=== PATIENT | female | born 1990 | race Caucasian/White ===

== ENCOUNTER 2018-10-31 14:00 | Outpatient (CLI) | payer MEDICAID, SELFPAY ==
[2018-10-31 14:20] VITALS: BMI 31.6
[2018-10-31] MEDS: Lactated Ringers 1,000 ML 125 ML IV (14:35)
--- NOTE | 2018-10-31 14:37 | OB.TRI.NOTE ---
History of Present Illness Date of Service: 10/31/18 Was patient seen by the physician?: Yes Reason For Visit: CEPHALIC VERSION Date of Service: 10/31/18 Final MORENO: 11/18/18 Final MORENO Source: US <20 weeks Gestational age: 37 Weeks and 3 Days Allergies No Known Allergies Allergy (Verified 02/10/16 14:54) Physical Exam General: Alert, Oriented x3 Abdomen: Soft, Non Tender, Gravid Presentation: Breech NST - FHR Rate Baby A Baseline: 140 Variability:: Moderate Accelerations:: 15 x 15 Decelerations:: None NST Reactive:: Yes FHR Category:: Category I Uterine Activity:: occasional Impression/Plan 28yo @ 37.3 wks, BREECH here for external cephalic version 1) counseled on risks of external cephalic version including but not limited to emergent cs due to intolerance or placental abruption. If fails will schedule for repeat c/s at 39 weeks 2) IV started, labs obtained 3) Ultrasound confirms Breech
--- NOTE | 2018-10-31 14:51 | PCM.OP.BLANK ---
Operative Report Date of Procedure: 10/31/18 Primary: Dr. Kitty Funk Technical Illustrator: Dr. Yolanda Peters Pre op dx: Breech presentation Post op dx: breech presentation procedure performed: Attempted external cephalic version- unsuccessful procedure note: Informed consent was obtained and NST obtained external cephalic version was attempted. Gel was placed on maternal abdomen. Maternal abdomen was soft nontender. Attempted backward roll first unsuccessful. buttocks difficult to disengage. Next a second attempted a forward roll was performed and again was unsuccessful. At this time patient declined further trial. Patient is scheduled for a repeat section on November 15, 2018. Patient will get RhoGam prior to leaving today. complications: NONE anesthesia: None
== END 2018-10-31 16:30 | disposition home or self-care (01) ==
LOC: WPOUT 14:12 → WP 14:13
PROVIDERS: Referring Provider Obstetrics & Gynecology; Visit Provider Obstetrics & Gynecology
DX: O32.1XX0 Maternal care for breech presentation, not applicable or unspecified (principal); Z3A.37 37 weeks gestation of pregnancy
CPT/HCPCS: 96360; 96361; 59025; 59050; 59412; 76815; 86900; 90384; 96372; 99218; J7120; G0378; J2790

== ENCOUNTER 2018-11-05 19:40 | Outpatient (CLI) | payer MEDICAID, SELFPAY ==
[2018-11-05 20:21] VITALS: BMI 32.3
[2018-11-05 20:45] LABS: ROM Internal Control Test YES-OK TO RESULT pt. (Internal QC); ROM Patient Test Negative (Negative)
[2018-11-05 20:55] VITALS: RESP 18
--- NOTE | 2018-11-06 08:05 | OB.TRI.NOTE ---
- Problem List (1) Vaginal discharge during Status: Acute History of Present Illness Date of Service: 11/05/18 Was patient seen by the physician?: No Reason For Visit: Possible LOF Date of Service: 11/05/18 Final MORENO: 11/18/18 Final MORENO Source: US <20 weeks Gestational age: 38 Weeks and 2 Days History of Present Illness: Patient presented with possible LOF. Stated underwear were wet. No gush or leaking fluid. No ctx, vb. +FM Allergies No Known Allergies Allergy (Verified 11/05/18 20:20) Laboratory Studies: Laboratory Tests 11/05/18 Range/Units 20:00 Vag Amniotic Fld Detect Negative (Negative) Physical Exam Vitals: Vital Signs Resp 18 11/05/18 20:55 NST - FHR Rate Baby A Baseline: 140 Variability:: Moderate Accelerations:: 15 x 15 Decelerations:: None NST Reactive:: Yes Uterine Activity:: irritable Impression/Plan Pt presented for vaginal discharge, possible LOF - Not ruptured - NST reactive and reassuring - D/c home
--- OUTSIDE RECORDS SUMMARY | 2018-12-23 00:17 | XMS RPT_ITS ---
:1990 Author Organization OHIP Care Team Providers Name Role Phone Minna Barron Admitting Unavailable Minna Barron Attending Unavailable Minna Barron Referring Unavailable Primay Care Physicia, No Primary Care Unavailable Cuca Peters Attending Unavailable Cuca Peters Referring Unavailable Primay Care Physicia, No Primary Care Unavailable Cuca Peters Attending Unavailable Cuca Peters Referring Unavailable Primay Care Physicia, No Primary Care Unavailable Minna Barron Admitting Unavailable Harini, Minna Attending Unavailable Harini, Minna Referring Unavailable Primay Care Physicia, No Primary Care Unavailable SNOW DIAMOND () Attending Unavailable AYAKA, KAREBER Referring Unavailable NEYTERESAT ANGEL, SONJA Attending Unavailable AYAKA, KARMON Referring Unavailable NEYHART ANGEL, SONJA Attending Unavailable ABEL HOUSE Attending Unavailable NEYHART ANGEL, OSNJA Referring Unavailable AYAKA, KAREBER Attending Unavailable NEYHART ANGEL, SONJA Referring Unavailable NEYHART ANGEL, SONJA Referring Unavailable LILO, HANNA (CNM) Attending Unavailable AYAKA, KARMON Referring Unavailable DONNY SCOTT (CNM) Attending Unavailable LILO, HANNA (CNM) Referring Unavailable TRACY CONTRERAS Attending Unavailable LILO, HANNA (CNM) Referring Unavailable LILO, HANNA (CNM) Attending Unavailable LILO, HANNA (CNM) Referring Unavailable CUCA PETERS Attending Unavailable LILO, HANNA (CNM) Referring Unavailable ALVARO DONNY (CNM) Attending Unavailable TRACY CONTRERAS Attending Unavailable HARINI, MINNA L Referring Unavailable NEYHART ANGEL, SONJA Attending Unavailable HARINI, MINNA L Referring Unavailable HARINI, MINNA L Attending Unavailable LILO, HANNA (CNM) Attending Unavailable HARINI, MINNA L Referring Unavailable HARINI, MINNA L Attending Unavailable ALVARO DONNY (CNM) Attending Unavailable HARINI, MINNA L Attending Unavailable AYAKA, KARMON Attending Unavailable ALVARO, DONNY (CNM) Referring Unavailable ALVARO DONNY (CNM) Referring Unavailable HARINI, MINNA L Attending Unavailable AYAKA, MARIA G Attending Unavailable Delia Cervantes MD Attending Unavailable PHYSICIAN, NONE Primary Care Unavailable PROBLEMS PROBLEMS DATE TYPE CONDITION / CODE ATTENDING STATUS SOURCE 11/17/2018 Unknown O82 - Encounter for Harini, Active [place] delivery [facility] without indication / Hospital O82(ICD-10) Repository 11/11/2018 Unknown N89.8 - Other Cuca Peters Active [place] specified [facility] noninflammatory Hospital disorders of vagina / Repository N89.8(ICD-10) 08/31/2018 Active 27 weeks gestation of NA Active [facility] Main Z3A.27(ICD-10) [place] Repository 05/02/2018 Active Encounter for NA Active [facility] supervision of other [facility] normal , [place] first trimester / Repository Z34.81(ICD-10) 05/02/2018 Active History of uterine NA Active [facility] scar from previous [facility] surgery / [place] Z98.891(ICD-10) Repository 05/02/2018 Active 11 weeks gestation of NA Active [facility] / [facility] Z3A.11(ICD-10) [place] Repository 03/16/2018 Active Supervision of NA Active [facility] with [facility] Main history of ectopic [place] , Repository unspecified trimester / O09.10(ICD-10) 03/14/2018 Active Unknown / NA Active [facility] UNK(Unknown) [facility] [place] Repository PROCEDURES PROCEDURES No Procedure Records FoundRESULTS RESULTS PROGRESS Observed: 11/29/2018 Status: COMPLETED Source: [place] 4:04 PM [facility] REPOSITORY HNO ID: [id number] Author: Donny Scott Service: (none) Author Type: Sales Representative Advertising Type: Progress Notes Filed: 11/29/2018 4:14 PM Note Text: SUBJECTIVE: 28 year old female presents for 2 week exam. Outcome: RCS. Date delivered: 11/15/2018. Delivering M.D.: Minna Barron M.D.. Delivered in what hospital? [facility] Lochia: [place], Normal depression/mood: None Breast/bottle: Breast feeding. If , do you have any drainage or redness at incision site? No Do you have a fever? No Stephania Barron Ma OBJECTIVE: Abdomen: soft, non-tender, no masses, no hepatosplenomegaly and no lymphadenopathy Incision: Healed PLAN: RTO for 6 week check I have reviewed and updated past medical and surgical history, medications and allergies. Donny Scott APRN.FATOU CNOV Observed: 11/29/2018 Status: COMPLETED Source: [place] 4:00 PM [facility] REPOSITORY Office Visit (WOOB) MARTA KING ([id number]) 1990 F Date Time Provider Department 11/29/18 4:00 PM DONNY SCOTT (FATOU) WOOB During your visit today, we recorded the following information about you: Blood pressure Weight 120/70 80.3 kg Donny Scott APRN.CNM 11/29/2018 4:14 PM Signed SUBJECTIVE: 28 year old female presents for 2 week exam. Outcome: RCS. Date delivered: 11/15/2018. Delivering M.D.: Minna Barron M.D.. Delivered in what hospital? [facility] Lochia: [place], Normal depression/mood: None Breast/bottle: Breast feeding. If , do you have any drainage or redness at incision site? No Do you have a fever? No Stephania Barron Ma OBJECTIVE: Abdomen: soft, non-tender, no masses, no hepatosplenomegaly and no lymphadenopathy Incision: Healed PLAN: RTO for 6 week check I have reviewed and updated past medical and surgical history, medications and allergies. Donny Scott APRN.CNM Referring Provider: SELF [200] Allergies As of Date: 11/29/2018 (No Known Allergies) Date Reviewed: 11/29/2018 Reviewed by: Stephania Barron Ma - Fully Assessed Primary Visit Diagnosis:Single delivery by section [O82] Prescriptions as of 11/29/2018 Sig: VIT 123-IRON 28 MG-F* Take 1 capsule by mouth once * Problem List As Of Date 11/29/2018 Noted Resolved Retained tampon [T19.2XXA] INVALID FOR*08/14/2017 More... BV (bacterial vaginosis) [N76.0, B96.89] INVALID FOR*08/14/2017 More... Genetic screening [Z13.79] INVALID FOR*10/27/2017 More... Ectopic [O00.90] INVALID FOR*10/27/2017 Rh negative state in antepartum period [O09.899*INVALID FOR* More... Post-dates [O48.0] INVALID FOR*10/27/2017 Short interval between pregnancies affecting pr*INVALID FOR* More... with history of ectopic [O0*INVALID FOR* More... History of macrosomia in infant in prior pregna*INVALID FOR* More... Previous delivery affecting ,*INVALID FOR* More... Quit smoking [Z87.891] INVALID FOR* More... Patient requested diagnostic testing [Z01.89] INVALID FOR* More... Cocaine use [F14.90] INVALID FOR* More... Breech presentation [O32.1XX0] INVALID FOR* More... Disposition: Return if symptoms worsen or fail to improve, for 6 week visit. Follow-up and Disposition History Recorded Encounter Status:Closed by DONNY SCOTT on 11/29/18 DISCHARGE SUMMARY Observed: 11/21/2018 Status: F Source: [place] 8:56 AM [facility] REPOSITORY [facility] Medical Records Department [address] [place] [address] [place] [address] Discharge Summary 11/17/18 1306 MR#: [id number] Acct: [id number] Name: MARTA KING Rep #: [id number] : 1990 28 From: Donny Scott CNM PCP: Care Physician, No Primary Status: DIS IN Y Location: [id number] Discharge Date and Diagnosis Date of Admission: 11/15/18 Date of Discharge: 11/17/18 - Primary Discharge Diagnosis Repeat Section Hospital Course and Treatment Operations: - - Section Procedures: None Summary of Care Provided: The patient is a 28 year old F for Repeat Section. Hospital course uncomplicated. - Physical Exam Vital Signs Temp Pulse Resp BP Pulse Ox 98.2 F 109 H 16 126/82 H 98 11/17/18 08:00 11/17/18 08:00 11/17/18 08:00 11/17/18 08:00 11/17/18 08:00 Oxygen Delivery Method Room Air Weight: 201 lb Body Mass Index (BMI) 32.4 Intake and Output for Last 24 Hours Intake Total 2342 / 2342 1367 / 1367 Output Total 1400 / 1400 5400 / 5400 Balance 942 / 942 -4033 / -4033 Discharge Diet: No Restrictions Discharge Activity: May not drive while taking narcotic pain medications., May Shower May resume sexual activity in: 4-6 weeks Weight Bearing Status: Full weight bearing Additional Activity Instructions:: Nothing in the vagina for 4-6 weeks. You may return to work/school in 6 weeks. Call your doctor if your incision/area has: Continuous Slow Oozing, Sudden Increased Bleeding, Increased Pain/ Swelling, Increased Redness, Foul Smelling Discharge Call your doctor if you observe: Fever of 101 or Higher, Coldness, Increased Pain, Inability to urinate, Inability to have a bowel movement, Using more than one pad per hour, Shortness of breath, Chest pain, Increased palpitations (irregular heartbeat), Calf discomfort, Uncontrolled pain Suture Line Care: Avoid Pulling/Pushing, Avoid Pinching/Bending Remove Dressing in (days):: 5 Cleanse incision/area with: Keep Dressing Clean AND Dry Home Medications: Medications to take at Discharge Vits [Prenatabs FA ] 1 tablet PO DAILY 02/10/16 Docusate Sodium [Colace] 100 mg PO BID capsule 11/16/18 Naproxen [Naprosyn] 250 - 500 mg PO Q8H PRN PRN #30 tablet 11/16/18 Oxycodone HCl/Acetaminophen [Percocet 5/325] 1 - 2 tab PO Q4H PRN PRN 7 Days #20 tab 11/16/18 Following Prescrptions Were Given to Patient: Oxycodone HCl/Acetaminophen [Percocet 5/325] 1 - 2 tab PO Q4H PRN PRN 7 Days #20 tab PRN Reason: Pain Naproxen [Naprosyn] 250 - 500 mg PO Q8H PRN PRN #30 tablet PRN Reason: Mild Pain (-02/02) Primary Care Physician: Care Physician,No Primary [Primary Care Provider] - Please Follow Up With: Minna Barron MD Medical Necessity - Tobacco Use Smoking Status: Former smoker Meaningful Use Info Meaningful Use Diagnoses (Choose all that apply): None applicable 11/17/18 1309 <Electronically signed by Donny Scott CNM> Date Donny Scott CNM 11/21/18 0856<Electronically signed by Minna Barron MD> Cosigner Signature (if applicable): Date Minna Barron MD CC: FATOU Scott; No Primary Care Physician; Minna Barron MD Signed PROGRESS Observed: 11/20/2018 Status: COMPLETED Source: [place] 11:53 AM [facility] REPOSITORY HNO ID: [id number] Author: Francine Matos LPN Service: (none) Author Type: (none) Type: Progress Notes Filed: 11/20/2018 11:55 AM Note Text: Pt delivered via RC/S at [facility] on 11/15/[address] Barron and FADI. See OB Outcome note. Attempted to contact pt and follow up post , number listed is no longer a working number. Francine Matos LPN DISCHARGE INSTRUCTION Observed: 11/16/2018 Status: F Source: [place] 2:48 PM [facility] REPOSITORY [facility] Medical Records Department [address] [place] [address] Instructions for Home/Discharge Instructions 11/16/18 1446 MR#: [id number] Acct: [id number] Name: MARTA KING Rep #: [id number] : 1990 28 From: Donny Scott CNM PCP: Care Physician, No Primary Status: ADM IN Discharge Diet: No Restrictions Discharge Activity: May not drive while taking narcotic pain medications., May Shower May resume sexual activity in: 4-6 weeks Weight Bearing Status: Full weight bearing Lifting Restrictions: 20 pounds Additional Activity Instructions:: Nothing in the vagina for 4-6 weeks. You may return to work/school in 6 weeks. Call your doctor if your incision/area has: Continuous Slow Oozing, Sudden Increased Bleeding, Increased Pain/ Swelling, Increased Redness, Foul Smelling Discharge Call your doctor if you observe: Fever of 101 or Higher, Coldness, Increased Pain, Inability to urinate, Inability to have a bowel movement, Using more than one pad per hour, Shortness of breath, Chest pain, Increased palpitations (irregular heartbeat), Calf discomfort, Uncontrolled pain Suture Line Care: Avoid Pulling/Pushing, Avoid Pinching/Bending Remove Dressing in (days):: 5 Cleanse incision/area with: Keep Dressing Clean AND Dry Additional Instructions: If you experience any of the following, contact your healthcare provider. * Bleeding that soaks a pad every hour for 2 hours * Fever 100.4 or higher * Unrelieved incision or abdominal pain * Swelling, redness, discharge or bleeding from your incision or episiotomy site * Your incision begins to separate * Problems urinating (including inability to urinate or burning while urinating). * Visual changes * Severe headache * Flu-like symptoms * Pain or redness in one of both of your breasts * Pain, warmth, tenderness or swelling in your legs, especially the calf area * Frequent nausea and vomiting * Symptoms of depression or anxiety If you experience any of the following, call 911 or go to the nearest Emergency Room. * Chest pain * Problems breathing * Seizure activity * Partial or complete paralysis of a body part, slurred speech, weakness or drooping of the face, or a sudden inability to walk or hold your balance Allergies/Adverse Reactions: Allergies No Known Allergies Allergy (Verified 11/15/18 11:28) Medications to take at Discharge Vits [Prenatabs FA ] 1 tablet PO DAILY 02/10/16 Docusate Sodium [Colace] 100 mg PO BID capsule 11/16/18 Naproxen [Naprosyn] 250 - 500 mg PO Q8H PRN PRN #30 tablet 11/16/18 Oxycodone HCl/Acetaminophen [Percocet 5/325] 1 - 2 tab PO Q4H PRN PRN 7 Days #20 tab 11/16/18 The following prescriptions were given: Oxycodone HCl/Acetaminophen [Percocet 5/325] 1 - 2 tab PO Q4H PRN PRN 7 Days #20 tab PRN Reason: Pain Naproxen [Naprosyn] 250 - 500 mg PO Q8H PRN PRN #30 tablet PRN Reason: Mild Pain () Follow-Up: Call to make an appointment with your doctor for an incision check in 1-2 weeks. You will also need a 6 week post- follow up appointment. Test results from this visit will be discussed in further detail at your follow-up appointment, if applicable. Please Follow Up With: Minna Barron MD Primary Care Physician: Care Physician,No Primary [Primary Care Provider] - 11/16/18 1448 <Electronically signed by Donny Scott CNM> Date Donny Scott CNM CC: No Primary Care Physician Signed CBC-COMPLETE BLOOD CNT Collected: 11/16/2018 Status: F Source: [place] NO DIFF 6:00 AM [facility] REPOSITORY Order Comment: Comments: Day #1 Reason for Laboratory Test TYPE CODE TESTS RESULT OUT OF RANGE REFERENCE UNITS LAB L100.1000 4.4-11.0 K/mm3 Normal WBC 10.7 LAB L100.1200 4.2-5.4 M/mm3 Low RBC 3.18 LAB L100.1300 12.0-15.0 g/dl Low HGB 9.2 LAB L100.1400 37-47 % Low HCT 28.4 LAB L100.1500 81-99 fL Normal MCV 89.3 LAB L100.1600 27.0-32.0 pg Normal MCH 28.9 LAB L100.1700 32-36 g/gl Normal MCHC 32.4 LAB L100.1810 11.6-14.6 % Normal RDW CV 12.9 LAB L100.1820 35.1-43.9 fl Normal RDW SD 41.8 LAB L100.1900 150-450 K/mm3 Normal PLT 222 LAB L100.2000 6.2-12.0 fl Normal MPV 8.4 Performed By: #### L100.0500 #### [facility] [place], [address] RH NEGATIVE MOM Collected: 11/15/2018 Status: F Source: [place] WORKUP 6:40 PM [facility] REPOSITORY Order Comment: Baby's Full Name LAVON KING Baby's Bracelet # [id number] Baby's MR # [id number] TYPE CODE TESTS RESULT OUT OF RANGE REFERENCE UNITS LAB B101.0425 O Normal MOM'S ABO NEGATIVE RH LAB B101.0450 Normal MOM'S ABS POSITIVE LAB B101.0500 NEGATIVE Normal NEGATIVE SCREEN LAB B101.0950 O Normal BABY'S POSITIVE ABO RH LAB B101.1000 NEGATIVE Normal BABY'S POSITIVE MARCY Performed By: #### B101.0300 #### [facility] [address] [place], [address] RHOGAM Collected: 11/15/2018 Status: F Source: [place] 6:40 PM [facility] REPOSITORY TYPE CODE TESTS RESULT OUT OF REFERENCE UNITS RANGE LAB U100.2500 [id number] TRANSFUSED PRODUCT: Rho(D) Immune Globulin RhoGam COUNT: 1 Performed By: #### U100.2500 #### [facility] - refer to report for specific site OPERATIVE REPORT Observed: 11/15/2018 Status: F Source: [place] 1:07 PM [facility] REPOSITORY [facility] Medical Records Department [address] [place] [address] Operative Report 11/15/18 1302 MR#: [id number] Acct: [id number] Name: MARAT KING Rep #: [id number] : 1990 28 From: Minna Barron MD PCP: Care Physician, No Primary Status: ADM IN Location: [id number] Delivery Classification: Scheduled Final MORENO: 11/18/18 Final MORENO Source: US <20 weeks Gestational age: 39 Weeks and 4 Days Indications for : Repeat Elective Description of Procedure: The patient was taken to the operating room. She was prepped and draped in the dorsal supine position with a leftward tilt. A Pfannenstiel skin incision was made approximately 2 cm above the symphysis pubis and carried through to underlying layer fascia with the scalpel. The fascia was incised incised in the midline and extended laterally with the Chilel scissors. The fascia was dissected off the rectus muscles with blunt and sharp dissection. The rectus muscles were in the midline and the peritoneum was entered bluntly. The peritoneal incision was stretched and the bladder blade was placed. The uterine incision was made in a low transverse fashion with the scalpel and extended superiorly and inferiorly with blunt dissection. The amniotic membranes were ruptured and moderate meconium-stained fluid was noted. The nurses were notified. The infant's head was brought to the incision in the flexed position, and initially wouldn't engage. The incision was stretched slightly and no areas that were preventing delivery were noted, the angle of the vertex was shifted slightly and then the infant and delivered without difficulty. The remainder of the was delivered with gentle traction and fundal pressure in the standard fashion. The mouth and nares were bulb suctioned. The cord was clamped and cut as the was stimulated. Cord clamping was delayed approximately 30 seconds. The was handed off to the waiting nursing staff. The placenta was delivered with fundal massage and gentle traction in the standard fashion. The uterus was exteriorized and cleared of all clots and debris. The cervix was dilated with a ring forcep. The uterine incision was closed with #1 Vicryl in a running locked fashion. A second layer of the same suture was used in an imbricating fashion. The incision was examined and was found to be hemostatic. The uterus was placed back into the peritoneal cavity and hemostasis was again confirmed. The rectus muscles were examined and any bleeding was Bovie cauterized. The parietal peritoneum was closed with 3-0 Vicryl suture and the rectus muscles were reapproximated with an 0 Vicryl running suture. The surgical teams outer gloves were then changed. The rectus fascia was examined and any bleeding was Bovie cauterized and the rectus fascia was closed with 1 Vicryl suture in a running standard fashion. The subcutaneous tissue was examining and any bleeding was Bovie cauterized. The subcutaneous tissue was reapproximated with 3-0 Vicryl suture. The skin was closed in a subcuticular fashion by the DIRECTOR DATA ANALYTICS with me present in the labor and delivery suite. I performed the remainder of the procedure with assistance. All sponge, lap, and needle counts were correct. The patient was taken to her room for recovery in a stable condition. Amniotic Membrane Rupture Type: Artificial Amniotic Fluid Description: Moderate meconium Placenta Disposition: [facility] Specimen(s) sent to pathology: None Drain: Mason to straight drain Fluids Replaced: 1200cc Cord Entanglement: None Cord Vessel Description: 3 Vessels Esitmated Blood Loss (ml): 800 Infant Gender: Female (1 minute): 8 (5 minute): 9 Delayed cord clamping: Yes Complications: None - Admit VTE Documentation VTE Present on Admission: No VTE Mechan Device Prophylaxis: SCD's VTE Pharm Prophylaxis ordered?: No Reason prophylaxis not ordered:: Procedure Not Indicated 11/15/18 1307 <Electronically signed by Minna Barron MD> Date Minna Barron MD CC: No Primary Care Physician; Minna Barron MD Signed CBC W/DIFF, AUTOMATED Collected: 11/15/2018 Status: F Source: [place] 10:40 AM [facility] REPOSITORY TYPE CODE TESTS RESULT OUT OF RANGE REFERENCE UNITS LAB L100.1000 4.4-11.0 K/mm3 Normal WBC 9.6 LAB L100.1200 4.2-5.4 M/mm3 Low RBC 3.57 LAB L100.1300 12.0-15.0 g/dl Low HGB 10.4 LAB L100.1400 37-47 % Low HCT 31.6 LAB L100.1500 81-99 fL Normal MCV 88.5 LAB L100.1600 27.0-32.0 pg Normal MCH 29.1 LAB L100.1700 32-36 g/gl Normal MCHC 32.9 LAB L100.1810 11.6-14.6 % Normal RDW CV 12.7 LAB L100.1820 35.1-43.9 fl Normal RDW SD 40.7 LAB L100.1900 150-450 K/mm3 Normal PLT 282 LAB L100.2000 6.2-12.0 fl Normal MPV 8.7 LAB L100.2100 47-70 % High NEUT% 71.1 LAB L100.2200 19-41 % Normal LY% 20.7 LAB L100.2300 0-10 % Normal MONO% 7.3 LAB L100.2400 0-5 % Normal EO% 0.5 LAB L100.2500 0-1 % Normal BASO% 0.2 LAB L100.2550 0.0-0.9 % Normal IM GRAN % 0.200 Result Comment: IG% - Immature Granulocytes (promyelocytes, myelocytes and metamyelocytes) > 1% indicates that a LEFT SHIFT is Present. LAB L100.2620 2.0-7.7 X10 3/uL Normal Absolute Neut 6.8 LAB L100.2720 0.83-4.51 X10 3/ul Normal Absolute Lymph 1.99 Performed By: #### L100.0100 #### [facility] [address] [place], [place], [id number] TYPE AND SCREEN Collected: 11/15/2018 Status: F Source: [place] 10:40 AM [facility] REPOSITORY Order Comment: CMV NEG?* N Give When? Type AND Hold Irradiated? N Leukodepleted? Y Reason for Type AND Screen/Red Cells: SURGERY Surgery Date: 11/15/18 Time: 1200 Type of Surgery: TYPE CODE TESTS RESULT OUT OF RANGE REFERENCE UNITS LAB B10.0800 O Normal BLOOD TYPE GEL NEGATIVE LAB B100.4000 High Antibody POSITIVE Screen Performed By: #### B101.7450, B101.1999, B102.1100 #### [facility] [address] [place], [place], [id number] ANTIBODY PANEL ID Collected: 11/15/2018 Status: F Source: [place] 10:40 AM [facility] REPOSITORY Order Comment: CMV NEG?* N Give When? Type AND Hold Irradiated? N Leukodepleted? Y Reason for Type AND Screen/Red Cells: SURGERY Surgery Date: 11/15/18 Time: 1200 Type of Surgery: TYPE CODE TESTS RESULT OUT OF REFERENCE UNITS RANGE LAB B101.2000 ANTIBODY PANEL Result Comment: ANTI-C ANTI-D CANNOT RULE OUT ANTI-E ANTI-K WILL USE C,E,K NEGATIVE UNITS RESULTS CALLED TO JEAN PALU 11/15/18 Chelyl2 Mario Riley. REPORT READ BACK BY JEAN PAUL. Performed By: #### B101.7450, B101.1999, B102.1100 #### [facility] [address] [place], [place], [address] ANTIGEN C GAMMACLONE Collected: 11/15/2018 Status: F Source: [place] 10:40 AM [facility] REPOSITORY Order Comment: CMV NEG?* N Give When? Type AND Hold Irradiated? N Leukodepleted? Y Reason for Type AND Screen/Red Cells: SURGERY Surgery Date: 11/15/18 Time: 1200 Type of Surgery: TYPE CODE TESTS RESULT OUT OF REFERENCE UNITS RANGE LAB B102.5450 C ANTIGEN ID ANTIGEN: NEGATIVE Performed By: #### B101.7450, B101.2000, B102.1100 #### [facility] [address] [place], [address] ANTIGEN E GAMMACLONE Collected: 11/15/2018 Status: F Source: [place] 10:40 AM [facility] REPOSITORY TYPE CODE TESTS RESULT OUT OF REFERENCE UNITS RANGE LAB B102.5450 E ANTIGEN ID ANTIGEN: NEGATIVE Performed By: #### B102.1200 #### [facility] [address] [place], [address] ANTIGEN K (STEVEN) Collected: 11/15/2018 Status: F Source: BESSIE SERIES 2 10:40 AM [facility] REPOSITORY TYPE CODE TESTS RESULT OUT OF REFERENCE UNITS RANGE LAB B102.5450 K ANTIGEN ID ANTIGEN: NEGATIVE Performed By: #### B102.1500 #### [facility] [address] [place], [address] HISTORY PHYSICAL Observed: 11/12/2018 Status: COMPLETED Source: [place] 8:39 AM [facility] REPOSITORY HNO ID: [id number] Author: Minna Barron Service: (none) Author Type: Physician Type: HANDP Filed: 11/12/2018 9:04 AM Note Text: Pre-Op History and Physical HPI: The patient is a 28 year old female presenting for pre-operative visit. She is scheduled for , for previous c/s and LGA on 11/15/18. Procedure discussed along with risks, benefits and complications. Other alternatives discussed for management. Consent form signed? Yes. PAST MEDICAL HISTORY Diagnosis Date - Chlamydia 2012 - Ectopic - Miscarriage PAST SURGICAL HISTORY Procedure Laterality Date - EXTRACTION ERUPTED TOOTH/EXR 2007 - REMOVAL OF FALLOPIAN TUBE 12/2015 Right tube Current Outpatient Prescriptions: [id number] (ONE-A-DAY WOMEN'S 1) 28 mg iron- 800 mcg-235 mg cap Take 1 capsule by mouth once daily. Disp: 1 Bottle Rfl: 11 No current facility-administered medications for this visit. ALLERGIES: Patient has no known allergies. 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[employer]* Social History Main Topics Smoking status: Former Smoker Packs/day: 0.00 Years: 3.00 Types: Cigarettes Quit date: 02/21/2017 Smokeless tobacco: Never Used Alcohol use: No Comment: occ Drug use: No Sexual activity: Yes Partners with: Male control/protection: None Other Topics Concern Service No Blood Transfusions No Caffeine Concern Yes Occupational Exposure Yes Hobby Hazards No Sleep Concern No Stress Concern No Weight Concern No Special Diet No Back Care No Exercise Yes Comment:7x daily Bike Helmet No Seat Belt Yes Self-Exams Yes Social History Narrative Merged History Encounter FAMILY HISTORY: FAMILY HISTORY Problem Relation Age of Onset - Cancer Maternal Grandmother - Cervical Cancer Maternal Grandmother - Psychiatry Father - Diabetes Brother - Cancer Other maternal fam hx of lung,colon, vulva - Hypertension Other maternal fam hx GENERAL: denies fevers or chills ENDOCRINOLOGY: has not been on steroids Cardiology : denies palpitations or chest pain Respiratory: denies SOB or cough Hematology: denies history of prolonged bleeding or easy bruising or VTE Allergy: Denies history of personal or family history of allergy to anesthesia PHYSICAL EXAMINATION: VITALS: Weight 195 lb (88.5 kg), last menstrual period 02/03/2018, currently . GENERAL: The patient is well nourished, well hydrated in no acute distress. , The patient is oriented to time, place, and person. NECK: Supple. No lynphadenopathy, normal thyroid, no thyromegaly. LUNGS: Clear to auscultation bilaterally. no wheezes, rhonchi or rales HEART: Regular rate and rhythm, Normal heart sounds and No murmurs or gallops abd- soft nontender, gravid IMPRESSION: 39 4/7 weeks on 11/15 w/ LGA fetus, previous c/s PLAN: The risks/benefits/alternatives and personal involved for the planned c/s were reviewed with the patient. Her questions were answered to her satisfaction and she desires to proceed. Consent was signed. I reviewed with her postop instructions and expectations. I have reviewed and updated past medical and surgical history, medications and allergies Minna Barron M.D. PROGRESS Observed: 11/11/2018 Status: COMPLETED Source: [place] 9:04 AM [facility] REPOSITORY O ID: [id number] Author: Tracy Contreras Service: (none) Author Type: Physician Type: Progress Notes Filed: 11/11/2018 9:06 AM Note Text: A madrid intrauterine The size is LGA at > 97 th% Estimated Date of Delivery: 11/18/18 EGA = 38w4d The anatomy appears normal in the areas visualized. The amniotic fluid volume is normal. There is no evidence of effusions and/ or hydrops. The placenta is fundal. RECOMMENDATIONS: - Self-assessment of kick counts - Follow up ultrasound as clinically indicated (ROM) RUPTURE OF Collected: 11/05/2018 Status: F Source: [facility] 8:00 PM [facility] REPOSITORY TYPE CODE TESTS RESULT OUT OF RANGE REFERENCE UNITS LAB L205.1310 Negative Normal ROM Negative Result Comment: Amniotic fluid not present indicates No Rupture of Membranes at time of specimen collection. Performed By: #### L205.1000 #### [facility] [address] [place], [address] RHOGAM Collected: 10/31/2018 Status: F Source: [place] 3:25 PM [facility] REPOSITORY TYPE CODE TESTS RESULT OUT OF REFERENCE UNITS RANGE LAB U100.2500 [id number] TRANSFUSED PRODUCT: Rho(D) Immune Globulin RhoGam COUNT: 1 Performed By: #### U100.2500 #### Non-[facility] - refer to report for specific site OPERATIVE REPORT Observed: 10/31/2018 Status: F Source: [place] 2:55 PM [facility] REPOSITORY [facility] Medical Records Department [address] [place] [address] Operative Report 10/31/18 1451 MR#: [id number] Acct: [id number] Name: FERNANDOMARTA C Rep #: [id number] : 1990 28 From: Sonja Angel MD PCP: Care Physician, No Primary Status: REG CLI Y Location: SW086-3 Operative Report Date of Procedure: 10/31/18 Primary: Dr. Sonja Angel Nuclear Engineer: Dr. Cuca Peters Pre op dx: Breech presentation Post op dx: breech presentation procedure performed: Attempted external cephalic version- unsuccessful procedure note: Informed consent was obtained and NST obtained external cephalic version was attempted. Gel was placed on maternal abdomen. Maternal abdomen was soft nontender. Attempted backward roll first unsuccessful. buttocks difficult to disengage. Next a second attempted a forward roll was performed and again was unsuccessful. At this time patient declined further trial. Patient is scheduled for a repeat section on November 15, 2018. Patient will get RhoGam prior to leaving today. complications: NONE anesthesia: None 10/31/18 1455 <Electronically signed by Sonja Angel MD> Date Sonja Sanders MD CC: No Primary Care Physician; Sonja Sanders MD; Cuca Peters DO Signed ABO RH BLOOD TYPE, Collected: 10/31/2018 Status: F Source: [place] [facility] 2:35 PM [facility] REPOSITORY TYPE CODE TESTS RESULT OUT OF RANGE REFERENCE UNITS LAB B10.0800 O Normal BLOOD NEGATIVE TYPE GEL Performed By: #### B10.0010 #### [facility] [address] [place], [place], [address] PROGRESS Observed: 10/25/2018 Status: COMPLETED Source: [place] 4:53 PM [facility] REPOSITORY HNO ID: [id number] Author: Hanna Santana Service: (none) Author Type: Sales Representative Advertising Type: Progress Notes Filed: 10/25/2018 4:55 PM Note Text: CM - S: Marta King presents for a routine OB visit at 36w4d. She denies LOF, VB, DFM or cramping/contractions. Patient desires membrane sweep with SVE if possible - patient interested in TOLAC. O: See flow sheet Gen: A+O x 3, NAD Abdomen: NT x 4 quadrants, EFW = 7#, Breech by Bebo's, RSA Extremities: Trace pedal edema SVE = 0.5/50/-3, no sweep done A/P: 36w4d IUP. Previous C/S and Breech Presentation. RTO 1 Weeks for follow up. Call with LOF, VB, DFM or cramping/contractions. 1. 36 weeks gestation of -GBS screening done -Patient continues to decline Flu vaccine and Tdap vaccine - URINE OB DIP B/O - STREPTOCOCCUS B PCR 2. Encounter for supervision of other normal in third trimester -[facility] teaching and Labor precautions reviewed - STREPTOCOCCUS B PCR 3. Breech Presentation - Leon Breech -U/S confirmation of Leon Breech presentation - consultation with on-call physician Dr. Harini POLLACK. Plan for RTC in 4-5 days with MD provider to discuss and schedule ECV if baby is still breech. R/B/A of ECV discussed with patient today. -Natural methods to vert breech baby discussed - handouts given. Hanna Satnana APRN.CNM GROUP B STREP PCR Collected: 10/25/2018 Status: F Source: [place] 4:29 PM [facility] REPOSITORY TYPE CODE TESTS RESULT OUT OF REFERENCE UNITS RANGE LAB GBPCRT Negative for GROUP Group B B STREP PCR Streptococcus by PCR. Performed By: #### GBPCR #### [facility] [address] [place], [place] [address] 100G, 3HR GEST. Collected: 08/31/2018 Status: F Source: [place] OGTT 8:46 AM [facility] REPOSITORY TYPE CODE TESTS RESULT OUT OF REFERENCE UNITS RANGE LAB GTG0 74-94 mg/dL Glucose 76 GST,Fasting Result Comment: [place] [employer] of Obstetricians and Gynecologists ([place]oustan) guidelines state gestational diabetes mellitus is present when 2 or more of the plasma glucose concentrations meet or exceed the following levels: fastin mg/dl, 1 hr: 180 mg/dl, 2 hr: 155 mg/dl, and 3 hr: 140 mg/dl. LAB GTG1 74-179 mg/dL Glucose GST, 1 161 Hr Result Comment: [place] [employer] of Obstetricians and Gynecologists (Ma/[place]oustan) guidelines state gestational diabetes mellitus is present when 2 or more of the plasma glucose concentrations meet or exceed the following levels: fastin mg/dl, 1 hr: 180 mg/dl, 2 hr: 155 mg/dl, and 3 hr: 140 mg/dl. LAB GTG2 74-154 mg/dL Glucose GST, 2 124 Hr Result Comment: [place] [employer] of Obstetricians and Gynecologists (Ma/[place]oustan) guidelines state gestational diabetes mellitus is present when 2 or more of the plasma glucose concentrations meet or exceed the following levels: fastin mg/dl, 1 hr: 180 mg/dl, 2 hr: 155 mg/dl, and 3 hr: 140 mg/dl. LAB GTG3 74-139 mg/dL Glucose GST, 3 130 Hr Result Comment: [place] [employer] of Obstetricians and Gynecologists (Ma/Coustan) guidelines state gestational diabetes mellitus is present when 2 or more of the plasma glucose concentrations meet or exceed the following levels: fastin mg/dl, 1 hr: 180 mg/dl, 2 hr: 155 mg/dl, and 3 hr: 140 mg/dl. Performed By: #### GTGST3 #### [facility] [address] [place], [place] [address] CBC AND DIFFERENTIAL Collected: 08/23/2018 Status: F Source: [place] 3:10 PM [facility] REPOSITORY TYPE CODE TESTS RESULT OUT OF REFERENCE UNITS RANGE LAB WBC 3.70-11.00 k/uL WBC High 13.02 LAB RBC 3.90-5.20 m/uL Low RBC 3.57 LAB HGB 11.5-15.5 g/dL Low Hemoglobin 11.4 LAB HCT 36.0-46.0 % Low Hematocrit 33.9 LAB MCV 80.0-100.0 fL MCV 95.0 LAB MCH 26.0-34.0 pG MCH 31.9 LAB MCHC 30.5-36.0 g/dL MCHC 33.6 LAB RDWCV 11.5-15.0 % RDW-CV 12.7 LAB PLTCT 150-400 k/uL Platelet Count 324 LAB MPV 9.0-12.7 fL MPV 9.1 LAB ANEUT % Neut% 77.1 LAB AANEUT 1.45-7.50 k/uL Abs Neut High 10.03 LAB ALYMP % Lymph% 17.1 LAB AALYMP 1.00-4.00 k/uL Abs Lymph 2.23 LAB AMONO % [place]% 5.2 LAB AAMONO <0.87 k/uL Abs [place] 0.68 LAB AEOS % Eosin% 0.4 LAB AAEOS <0.46 k/uL Abs Eosin 0.05 LAB ABASO % Baso% 0.2 LAB AABASO <0.11 k/uL Abs Baso 0.03 LAB AUNRBC 0 /100 WBC NRBCs 0.0 LAB ABNRBC <0.01 k/uL Absolute nRBC <0.01 LAB DTYP DTYPE Auto Diff Performed By: #### CBCDIF #### [facility] [address] [address] 50G, 1HR GEST. Collected: 08/23/2018 Status: F Source: [place] GSCRN 3:10 PM [facility] REPOSITORY TYPE CODE TESTS RESULT OUT OF REFERENCE UNITS RANGE LAB GLUP 74-134 mg/dL High Glucose 140 Screen, Preg Result Comment: [place] [employer] of Obstetricians and Gynecologists ([place]ume) guidelines state a gestational diabetes mellitus positive screen is made, in women not previously diagnosed with overt diabetes, when the 1 hr plasma glucose level is equal to or above 140 mg/dL. The [facility] [employer] [facility] [place] recommends a 135 mg/dL cutoff. Performed By: #### GLTGST #### [place] [address] ANTIBODY SCREEN Collected: 08/23/2018 Status: F Source: [place] 3:10 PM [facility] REPOSITORY TYPE CODE TESTS RESULT OUT OF REFERENCE UNITS RANGE LAB % Antibody NEG Screen Performed By: #### ASCR #### [place] [address] PROGRESS Observed: 07/24/2018 Status: COMPLETED Source: [place] 12:46 PM [facility] REPOSITORY HNO ID: [id number] Author: Hanna Santana Service: (none) Author Type: Sales Representative Advertising Type: Progress Notes Filed: 07/24/2018 12:47 PM Note Text: CM - S: Marta Jcarlos King presents for a routine OB visit at 23w2d. She denies LOF, VB, DFM or cramping/contractions. O: See flow sheet Gen: A+O x 3, NAD Abd: NT x 4 quadrants, S=D Extremities: No edema A/P: 23w2d IUP. Previous C/S, Short Interconceptional Period. RTO 4-5 Weeks for follow up. Call with LOF, VB, DFM or cramping/contractions. 1. Encounter for supervision of other normal in second trimester -C teaching and PTL precautions reviewed -Patient still desires TOLAC, slight increase risk for uterine rupture for short interconceptional period discussed. Patient reports an understanding of possible risk. Continues to desire TOLAC if baby is not deemed macrosomic at term - URINE OB DIP B/O 2. 23 weeks gestation of -RTC in 4-5 weeks for MAMI+Rhogam+ 1 hour GCT - URINE OB DIP B/O Hanna Santana APRN.CNM PROGRESS Observed: 06/26/2018 Status: COMPLETED Source: [place] 3:55 PM [facility] REPOSITORY HNO ID: [id number] Author: Tracy Contreras Service: (none) Author Type: Physician Type: Progress Notes Filed: 06/26/2018 3:57 PM Note Text: A madrid? fetus in utero with symmetric measurements Adequate growth (AGA). Estimated Date of Delivery: 11/18/18 EGA = 19w2d The anatomy appears normal. There are no evident malformations and /or effusions. No genetic markers are noted. The amniotic fluid volume is within normal limits. The sensitivity of ultrasound in the detection of malformations overall is approximately 35%. RECOMMENDATIONS: - Follow up ultrasound as clinically indicated TOXICOLOGY SCREEN,UR Collected: 06/26/2018 Status: F Source: [place] 3:11 PM [facility] REPOSITORY TYPE CODE TESTS RESULT OUT OF REFERENCE UNITS RANGE LAB UPCP2 Negative Negative Phencyclidin e, Urine Result Comment: Cutoff threshold at 25 ng/mL. LAB UBENZ2 Negative Benzodiazepines, Ur Negative Result Comment: Cutoff threshold at 200 ng/mL. LAB UCOC2 Negative Cocaine, Negative Urine Result Comment: Cutoff threshold at 300 ng/mL. LAB UAMPH2 Negative Amphetamines, Urine Negative Result Comment: Cutoff threshold at 1000 ng/mL. LAB UTHC2 Negative Cannabinoids, Urine Negative Result Comment: Cutoff threshold at 50 ng/mL. LAB UOPI2 Negative Opiates, Negative Urine Result Comment: Cutoff threshold at 300 ng/mL. LAB UBARB2 Negative Barbiturates, Urine Negative Result Comment: Cutoff threshold at 200 ng/mL. LAB UETOH <11 mg/dL <11 Ethanol, Urine LAB UOXYC Negative Oxycodone, Negative Urine Result Comment: Cutoff threshold at 100 ng/mL. Comment: Immunoassay screen only. Cross reactivity with other substances can occur with immunoassay screening. Detection of any drug(s) in this urine toxicology panel is presumptive only. These tests are for med ical purposes only and should not be used for compliance monitoring, legal, or forensic use. Samples should be within normal physiological conditions (e.g. pH). This assay does not include adulteration/specimen validity testing. In clinical settings, confirmatory testing is at the practitioner's discretion [1]. If clinically indicated, confirmation by high specificity, quantitative methodology, which includes adulteration/spec imen validity testing, may be requested on the same specimen through Client Services ([phone]) if contacted within 48 hours of initial testing. [1]Substance Abuse and Mental Health Services Administration (2012). Clinical Drug Testing in Primary Care Technical Assistance Publication Series 32. Department of Health and Human Services, [place], p.10. These tests were developed and their performance characteristics determined by [facility]'s [facility] [place] ( [facility]). They have not been cleared or a pproved by the FDA. [facility] is regulated under CLIA as qualified to perform high complexity testing. These tests are used for clinical purposes. They should not be regarded as investigational or for research. Performed By: #### UTOX2 #### [facility] [address] [place], [place] [address] UA Collected: 06/20/2018 Status: F Source: [facility] 4:18 PM [facility] REPOSITORY TYPE CODE TESTS RESULT OUT OF RANGE REFERENCE UNITS LAB SPCUA(ANY NC) UA Specimen Type Clean Catch LAB CLRUA(ANY NC) UA Color Yellow LAB APPUA(ANY Clear NC) UA Appear Clear LAB SGUA(LOIN C) UA Spec Unknown Grav 1.005 LAB GLUA(LOIN Negative mg/dL C) UA Glucose Negative LAB BILUA(ANY Negative NC) UA Bili Negative LAB KETUA(ANY Negative mg/dL NC) UA Ketones Negative LAB BLDUA(ANY Negative NC) UA Blood Negative LAB PHUA(LOIN C) UA pH 5.0 LAB PROUA(ANY Negative mg/dL NC) UA Protein Negative LAB UROUA(ANY E.U./dL NC) UA Urobilinogen 0.2 LAB NITUA(ANY Negative NC) UA Nitrite Negative LAB LEUUA(ANY Negative NC) UA Leuk Est Negative Performed By: #### UA, UAMICAO #### [place] [address] [place], [place] [address] .URINALYSIS MICROSCOPIC Collected: 06/20/2018 Status: F Source: [place] [facility] 4:18 PM [facility] REPOSITORY TYPE CODE TESTS RESULT OUT OF REFERENCE UNITS RANGE LAB WBCUA(LOIN None Seen /hpf C) UA WBC None Seen LAB RBCUA(LOIN None Seen /hpf C) UA RBC None Seen LAB EPIUA(LOIN None Seen /hpf C) UA Squam Epithelial None Seen Performed By: #### UA, UAMICAO #### [place] [address] [place], [place] [address] CNCO Observed: 06/11/2018 Status: COMPLETED Source: [place] 12:00 AM [facility] REPOSITORY Letter Text [address] [address] 06/11/2018 RE: Marta King : 1990 To Whom It May Concern: This is to verify that the above captioned patient is with a madrid interuterine pregnancyand her Estimated Date of Delivery: 11/18/18. Sincerely, Maria G Krishna MD [phone] Letter Text [address] [address] 06/27/2018 RE: Marta King : 1990 To Whom It May Concern: This is to verify that the above captioned patient is with a madrid interuterine pregnancyand her Estimated Date of Delivery: 11/18/18. Sincerely, Hanna Santana CNM PROGRESS Observed: 05/31/2018 Status: COMPLETED Source: [place] 7:02 PM [facility] REPOSITORY HNO ID: [id number] Author: Hanna Santana Service: (none) Author Type: Sales Representative Advertising Type: Progress Notes Filed: 05/31/2018 7:04 PM Note Text: CM - S: Marta King presents with young son for a routine OB visit at 15w4d. She denies LOF, VB, DFM or cramping/contractions. Patient reports leg numbness and some tingling after prolonged standing. Reports that the pain radiates down her legs and comes and goes. Positive preliminary cocaine on urine tox - patient denies any use. Patient requests vitamin refill. O: See flow sheet Gen: A+O x 3, NAD Abd: NT x 4 quadrants, S=D Extremities: No edema in LE A/P: 15w4d IUP. Normal . RTO 3-4 Weeks for follow up. Call with LOF, VB, DFM or cramping/contractions. 1. Encounter for supervision of other normal in second trimester -Discussed leg numbness/tinging likely sciatica; stretches for possible relieve of numbness/tingling symptoms reviewed. - URINE OB DIP B/O - OBSTETRIC ULTRASOUND WHI 2. 15 weeks gestation of -2nd trimester portion sequential screen today -2nd trimester anatomy u/s at n.v. - URINE OB DIP B/O - OBSTETRIC ULTRASOUND WHI Hanna Santana APRN.CNM SEQUENT SCRN SECOND Collected: 05/31/2018 Status: F Source: [facility] PATIENTS ONLY 12:15 PM [facility] REPOSITORY TYPE CODE TESTS RESULT OUT OF REFERENCE UNITS RANGE LAB SE1PAP MoM 0.81 SE1 SYLVIA A LAB SE2AFP MoM 0.65 SE2 AFP LAB SE2HCG MoM 0.69 SE2 hCG LAB SE2UE3 MoM 1.10 SE2 Unconj uE3 LAB SE2INH MoM 0.48 SE2 Dimrc Inhibin A LAB SE1HCG MoM 0.86 SE1 hCG LAB SE2INT Screen Negative SE2 Interp Screen Negative LAB SE2SDN SE2 Scrn Rsk <1:34036 Dn Synd LAB SE2ADN SE2 Age Rsk 1:1000 Dn Snyd LAB SE2STS SE2 Scr Rsk <1:78287 Trsmy 13 LAB SE2STR SE2 Scr Rsk <1:01979 Trsmy18 LAB SE2SON SE2 Scr Rsk 1:7000 ONTD LAB SE2RS View Seq Scrn results in Second Trim Scanned Documents link when available. LAB SEQLRV SEQ Staff Reviewed by Review Vipin Helton MD, PhD ([id number]) Performed By: #### SEQL2 #### [facility] [employer] [address] [place], [place] [address] PROGRESS Observed: 05/02/2018 Status: COMPLETED Source: [place] 11:09 AM [facility] REPOSITORY HNO ID: [id number] Author: Abel House Service: (none) Author Type: Physician Type: Progress Notes Filed: 05/02/2018 11:10 AM Note Text: Please see ultrasound report for details of this visit. Abel House M.D. CBC Collected: 05/02/2018 Status: F Source: [place] 10:16 AM [facility] REPOSITORY TYPE CODE TESTS RESULT OUT OF REFERENCE UNITS RANGE LAB WBC 3.70-11.00 k/uL WBC 9.75 LAB RBC 3.90-5.20 m/uL RBC 4.03 LAB HGB 11.5-15.5 g/dL Hemoglobin 12.6 LAB HCT 36.0-46.0 % Hematocrit 37.0 LAB MCV 80.0-100.0 fL MCV 91.8 LAB MCH 26.0-34.0 pG MCH 31.3 LAB MCHC 30.5-36.0 g/dL MCHC 34.1 LAB RDWCV 11.5-15.0 % RDW-CV 11.8 LAB PLTCT 150-400 k/uL Platelet Count 344 LAB MPV 9.0-12.7 fL MPV 9.3 LAB ABSNUC <0.01 k/uL Absolute nRBC <0.01 Performed By: #### CBC, RUBIGG, SYPHGX, HBSAG, HIV12C, SEQL1 #### [facility] [employer] [address] [place], [place] [address] RUBELLA IGG ANTIBODY Collected: 05/02/2018 Status: F Source: [place] 10:16 AM [facility] REPOSITORY TYPE CODE TESTS RESULT OUT OF RANGE REFERENCE UNITS LAB RUBGQL Negative Abnormal Rubella IgG Positive Alert Ab, Qual Result Comment: Sample is considered positive for IgG antibodies to rubella virus. A positive result indicates previous exposure to Rubella virus or vaccination. LAB RUBQNT Index Value Rubella IgG Ab 1.57 Result Comment: Index values are interpreted as follows: Negative specimens <0.90 Equivocol specimens 0.90 to 0.99 Positive specimens >0.99 The magnitude of the measured result is not indicative of the amount of antibody present. Performed By: #### CBC, RUBIGG, SYPHGX, HBSAG, HIV12C, SEQL1 #### [place] [phone] SYPHILIS IGG WITH Collected: 05/02/2018 Status: F Source: [facility] 10:16 AM [facility] REPOSITORY TYPE CODE TESTS RESULT OUT OF REFERENCE UNITS RANGE LAB SYPHQL Nonreactive Syphilis IgG, Nonreactive Qual Result Comment: In conjunction with this result, the immune status of the patient should be evaluated based on their clinical status, related risk factors, and other diagnostic test results. LAB SYPHLG AI Syphilis IgG <0.2 Result Comment: Antibody index is interpreted as follows: Non reactive SPECIMENS <=0.8 Weak reactive SPECIMENS 0.9 to 5.9 Reactive SPECIMENS >=6.0 Performed By: #### CBC, RUBIGG, SYPHGX, HBSAG, HIV12C, SEQL1 #### [place] [phone] HEPATITIS B SURF. AG Collected: 05/02/2018 Status: F Source: [place] 10:16 AM [facility] REPOSITORY TYPE CODE TESTS RESULT OUT OF REFERENCE UNITS RANGE LAB HBSAG Negative Hepatitis B Negative Surf. Ag Performed By: #### CBC, RUBIGG, SYPHGX, HBSAG, HIV12C, SEQL1 #### [place] [phone] HIV 12 COMBO (AG/AB) Collected: 05/02/2018 Status: F Source: [place] 10:16 AM [facility] REPOSITORY TYPE CODE TESTS RESULT OUT OF REFERENCE UNITS RANGE LAB HVAGAB Non Reactive HIV Non Reactive 12 Ag/Ab Result Comment: (NOTE) HIV Information: [place] Rev. Code 3701.243(E): This information has been disclosed to you from confidential records protected from disclosure by state law. You shall make no further disclosure of this information without the specific, written, and informed release of the individual to whom it pertains, or as otherwise permitted by state law. A general authorization for the release of medical or other information is not sufficient for the purpose of the release of HIV test results or diagnoses. Performed By: #### CBC, RUBIGG, SYPHGX, HBSAG, HIV12C, SEQL1 #### [address] [place], [place] [address] SEQUENT SCRN FIRST Collected: 05/02/2018 Status: F Source: [place] [facility] PATIENTS ONLY 10:16 AM [facility] REPOSITORY TYPE CODE TESTS RESULT OUT OF REFERENCE UNITS RANGE LAB SE1PAP MoM 0.81 SE1 SYLVIA A LAB SE1HCG MoM 0.86 SE1 hCG LAB SE1INT Final result pending second Final trimester SE1 result pending sample Interp second trimester sample LAB SE1SDN SE1 Scrn 1:57989 Rsk Dn Synd LAB SE1ADN 1:740 SE1 Age Rsk Dn Synd LAB SE1STR SE1 Scr <1:30263 Rsk Trsmy18 LAB SE1ATR SE1 Age 1:2400 Rsk Trsmy18 LAB SE1RS View Seq Scrn results in First [employer] Scanned Documents link when available. LAB SEQLRV SEQ Staff Reviewed by Review Vipin Helton MD, PhD ([id number]) Performed By: #### CBC, RUBIGG, SYPHGX, HBSAG, HIV12C, SEQL1 #### [address] [address] TYPE AND SCR,PRENATL Collected: 05/02/2018 Status: F Source: [place] 10:16 AM [facility] REPOSITORY TYPE CODE TESTS RESULT OUT OF REFERENCE UNITS RANGE LAB %ABR O ABO/RH(D) NEGATIVE LAB % Antibody NEG Screen Performed By: #### TSPN #### [address] [address] TOXICOLOGY SCREEN,UR Collected: 04/01/2018 Status: F Source: [place] 3:00 PM [facility] REPOSITORY TYPE CODE TESTS RESULT OUT OF REFERENCE UNITS RANGE LAB UPCP2 Negative Negative Phencyclidin e, Urine Result Comment: Cutoff threshold at 25 ng/mL. LAB UBENZ2 Negative Benzodiazepines, Ur Negative Result Comment: Cutoff threshold at 200 ng/mL. LAB UCOC2 Negative Abnormal Preliminary Alert Cocaine, Urine positive. Result Comment: Cutoff threshold at 300 ng/mL. LAB UAMPH2 Negative Amphetamines, Urine Negative Result Comment: Cutoff threshold at 1000 ng/mL. LAB UTHC2 Negative Cannabinoids, Urine Negative Result Comment: Cutoff threshold at 50 ng/mL. LAB UOPI2 Negative Opiates, Negative Urine Result Comment: Cutoff threshold at 300 ng/mL. LAB UBARB2 Negative Barbiturates, Urine Negative Result Comment: Cutoff threshold at 200 ng/mL. LAB UETOH <11 mg/dL <11 Ethanol, Urine LAB UOXYC Negative Oxycodone, Negative Urine Result Comment: Cutoff threshold at 100 ng/mL. Comment: Immunoassay screen only. Cross reactivity with other substances can occur with immunoassay screening. Detection of any drug(s) in this urine toxicology panel is presumptive only. These tests are for med ical purposes only and should not be used for compliance monitoring, legal, or forensic use. In clinical settings, confirmatory testing is at the practitioner's discretion [1]. If clinically indicated, confirmation by high specificity, quantitative methodology may be requested on the same speci men through Client Services ([phone]) if contacted within 48 hours of initial testing. [1]Substance Abuse and Mental Health Services Administration (2012). Clinical Drug Testing in Primary Care Technical Assistance Publication Series 32. Department of Health and Human Services, [place], p.10. These tests were developed and their performance characteristics determined by [facility]'s [facility] [place] ( [facility]). They have not been cleared or a pproved by the FDA. [facility] is regulated under CLIA as qualified to perform high complexity testing. These tests are used for clinical purposes. They should not be regarded as investigational or for research. Performed By: #### UTOX2 #### [facility] [address] [place], [place] [address] Observed: 04/01/2018 Status: F Source: [place] URINE CULTURE 3:00 PM [facility] REPOSITORY Culture Result - 10,000 - <50,000 CFU/ml Normal urogenital ra Performed By: #### URCUL #### [facility] [address] [place], [place] [address] GC/CHLAMYDIA AMPLIF Collected: 04/01/2018 Status: F Source: [place] 10:45 AM [facility] REPOSITORY TYPE CODE TESTS RESULT OUT OF REFERENCE UNITS RANGE LAB GCCTSR GC/Chlam Amp [facility]erv[facility] Source LAB GCAMPL GC Negative Amplification for Neisseria gonorrhoeae by amplification. LAB CLAMPL Chlamydia Negative Amplif for Chlamydia trachomatis by amplification. Performed By: #### GCCT #### [facility] [address] [place] [address] CYTOLOGY Observed: 04/01/2018 Status: F Source: [place] 10:44 AM [facility] REPOSITORY Specimen originated from [facility] Specimen #: [id number] Submitting Physician: SONJA ANGEL MD SPECIMEN SUBMITTED A: CERVICAL, SCREENING, FLUID FINAL DIAGNOSIS A. CERVICAL, SCREENING, FLUID Satisfactory for interpretation. Negative for intraepithelial lesion or malignancy. Predominance of coccobacilli consistent with shift in vaginal ra. LOPEZ Cardona(ASCP) (Electronic Signature) CLINICAL DATA ROUTINE EXAM, HPV Testing: Yes, Reflex HPV for ASCUS Date of Last Menstrual Period: 02/03/2018 Menstrual History: STAINS A: CERVICAL, SCREENING, FLUID THIN PREP DENTAL SURGERY DOCTOR Fiona Dennison M.D., Synthetic Staple Extruder Date of Report: 04/05/2018 Date of Procedure: 04/01/2018 Date of Receipt: 04/02/2018 Submitted by: SONJA ANGEL MD Location: [facility] Diagnostic interpretation performed at [facility], [address] [place] [address]. The Pap Smear is a screening test for cervical cancer. False negative results occur with all screening tests, emphasizing the need for rescreening at recommended intervals, and clinical correlation. PROGRESS Observed: 04/01/2018 Status: COMPLETED Source: [place] 10:12 AM [facility] RE[facility]IT[facility] HNO ID: [id number] Author: Sonja Palomares Service: (none) Author Type: Physician Type: Progress Notes Filed: 04/01/2018 10:59 AM Note Text: INITIAL OB ASSESSMENT OB Provider: Sonja Angel MD HPI: Marta King is a 27 year old female here to establish Obstetrical Care. Patient's last menstrual period was 02/03/2018 (exact date). from OB Dating Form. Cycle length: 30 days- breast feeding only had two cycles Complaints: nausea without vomiting was unplanned but accepted. Obstetric History T1 L1 SAB1 TAB0 Ectopic1 Multiple0 Live Births1 Prior : yes x 1- non reassuring fhr tracing History of 4th degree laceration: No Patient's Risk Screening for delivery: History of abnormal pap: No Prior treatment for cervical dysplasia: none. 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: No Would refuse blood transfusion if medically necessary: No No weight on file for this encounter. Patient BMI over 30? 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 (Patient not taking: Reported on 01/22/2018 ) Docosahexanoic Acid (DHA ) 200 mg cap Take by mouth once daily. No current facility-administered medications on file prior to visit. Review of Systems: GENERAL: Negative for: Fever or Chills HEENT: Negative for: Headache, Impaired Vision, Ringing in Ears, Nosebleeds NECK: Negative for: Swelling, Pain, Stiffness RESPIRATORY: Negative for: Cough, Shortness of breath, Wheezing GASTROINTESTINAL: Negative for: Heartburn, Constipation, Diarrhea, Blood in stool, Vomiting MUSCULOSKELETAL: Negative for: Muscle or joint pain, stiffness, Joint swelling NEUROLOGIC/PSYCHIATRIC: Negative for: Weakness, Paralysis, Numbness, Tingling, Tremor, Anxiety, Depression, Memory loss SKIN: fungal rash on chest GENITOURINARY: Negative for: vaginal itching, vaginal discharge, hematuria or dysuria PHYSICAL EXAM: LMP 02/03/2018 GENERAL: pleasant female in no apparent distress DERMATOLOGY: Normal, without lesions, non-icteric and non-hirsute NECK: Supple, full range of motion, no adenopathy and thyroid normal BREAST: soft, non-tender, symmetric, no dominant mass, normal nipple-areolar complex and no lymphadenopathy ABDOMEN: soft, non-tender and no masses NEURO: alert and oriented x3,exam grossly non-focal PELVIS: External genitalia normal without lesions. Perineal body intact. No vaginal or cervical lesions. Cervix closed. Uterus 7 week size. No adnexal masses or tenderness. Clinical Pelvimetry: Pelvimetry clinically assessed as adequate Limited OB ultrasound exam: single intrauterine and positive cardiac activity ASSESSMENT: 27 year old at 6.6 wks gestational age PLAN: 1) Patient oriented to practice. Discussed nutrition, folic acid supplementation, dietary guidelines, exercise, smoking, alcohol, caffeine, and drug use. Discussed routine OB labs including STD/HIV. Discussed aneuploidy screening options including serum screening and nuchal translucency. 2) History of cesearan section, patient counseled on trial of labor versus repeat cesearan section, patient plans TOLAC 3) Pap today Follow up in 4 weeks or sooner prn. Sonja Palomares HCG, QUANTITATIVE BL Collected: 03/16/2018 Status: F Source: [place] 10:27 AM [facility] TYPE CODE TESTS RESULT OUT OF REFERENCE UNITS RANGE LAB HCGQT <5.0 mU/mL HCG, High Quantitative Bl 3657.0 Result Comment: QUANTITATIVE HCG NORMAL RANGES Weeks of Gestation (Weeks Since LMP) 3 Weeks (5.8-71.2 mIU/mL) 4 Weeks (9.5-750 mIU/mL) 5 Weeks (217-7138 mIU/mL) 6 Weeks (158-55643 mIU/mL) 7 Weeks (3697-564879 mIU/mL) 8 Weeks (44170-155440 mIU/mL) 9 Weeks (59335-975273 mIU/mL) 10 Weeks (27732-561813 mIU/mL) 12 Weeks (88263-736318 mIU/mL) Referenced to 4th [facility] of [facility] Performed By: #### HCGQT #### [facility] [address] [place], [place] [address] PROGRESS Observed: 03/14/2018 Status: COMPLETED Source: [place] 12:37 PM [facility] REPOSIT[facility] HNO ID: [id number] Author: Suzie Castano RN Service: (none) Author Type: (none) Type: Progress Notes Filed: 03/14/2018 12:52 PM Note Text: #: 1, Date: 10/2015, Sex: None, Weight: None, GA: 5w0d, Delivery: None, Apgar1: None, Apgar5: None, Living: None, Comments: None #: 2, Date: 12/2015, Sex: None, Weight: None, GA: None, Delivery: None, Apgar1: None, Apgar5: None, Living: None, Comments: right tube removed #: 3, Date: 10/25/17, Sex: Male, Weight: 9 lb 14.9 oz (4.506 kg), GA: 41w1d, Delivery: , Low Transverse, Apgar1: 7, Apgar5: 9, Living: Living, Comments: Pit induction,AROM, Meconium, Non reassuring FHR #: 4, Date: None, Sex: None, Weight: None, GA: None, Delivery: None, Apgar1: None, Apgar5: None, Living: None, Comments: None HCG, QUANTITATIVE BL Collected: 03/14/2018 Status: F Source: [place] 12:20 PM [facility] REPOSITORY TYPE CODE TESTS RESULT OUT OF REFERENCE UNITS RANGE LAB HCGQT <5.0 mU/mL HCG, High Quantitative Bl 1759.0 Result Comment: QUANTITATIVE HCG NORMAL RANGES Weeks of Gestation (Weeks Since LMP) 3 Weeks (5.8-71.2 mIU/mL) 4 Weeks (9.5-750 mIU/mL) 5 Weeks (217-7138 mIU/mL) 6 Weeks (158-05056 mIU/mL) 7 Weeks (3697-121046 mIU/mL) 8 Weeks (30430-310848 mIU/mL) 9 Weeks (79651-360339 mIU/mL) 10 Weeks (61506-184248 mIU/mL) 12 Weeks (23613-318690 mIU/mL) Referenced to 4th [facility] of [facility] Performed By: #### HCGQT #### [facility] [address] [place], [place] [address] CNNURSE Observed: 03/14/2018 Status: COMPLETED Source: [place] 11:30 AM [facility] RE[facility] Nurse Visit (WOOB) MARTA KING ([id number]) 1990 F Date Time Provider Department 03/14/18 11:30 AM NURSE PNOB [facility] WOOB During your visit today, we recorded the following information about you: Last Period 02/03/18 Suzie Castano RN 03/14/2018 12:00 PM Signed SEQUENTIAL SCREENINGS The [facility] offers sequential screenings for women who are interested in screenings for chromosomal abnormalities and certain defects during a . The sequential screen combines ultrasound and blood tests to determine the risk of chromosomal abnormalities, including Down's Syndrome (Trisomy 21) and Trisomy 18, as well as open neural tube defects including spina bifida. Ultrasound examination is performed between 11 weeks and 13 weeks gestational age. Blood tests are drawn after the ultrasound and again later in the between 15 and 21 weeks gestational age. Please let your physician know if you are interested in this testing. It will require an appointment with our emissions repair technician. This is not an ultrasound performed by a physician in our office during a routine visit. SIGNS AND SYMPTOMS OF LABOR 1. Contractions every 10 minutes or more often 2. Clear, pink, or brownish fluid (water) leaking from vagina 3. Feeling that baby is pushing down, pressure 4. Low, dull backache 5. Cramps that feel like a period 6. Cramps with or without diarrhea If you notice any of the above symptoms, contact our office at [phone] and ask to speak with a nurse. After hours, you can call doctors registry at [phone] OR call [facility] at [phone] and ask to have the doctor stone circular sawyer paged. If you consider this an emergency, dial 9-1-1 or go to your nearest emergency department. Cord-Blood Banking Up until recently, the umbilical cord--along with the blood that remained in it after a baby was born and the cord cut--was simply discarded by the hospital. Then, in the late , researchers discovered that cord blood possessed unusual properties that made it useful in the treatment of patients with some cancers and other illnesses. While the actual process of collecting cord blood is straightforward, many parents are not even aware that this option now exists, much less familiar with all the issues involved. The case for saving your baby's cord blood The blood running back and forth between your baby and the placenta is full of immature cells called stem cells. Unlike embryonic stem cells, which have the ability to develop into any type of body cell, cord-blood stem cells already are locked into a certain, vital function: making all the different components of the blood, such as platelets, white blood cells, and red blood cells-serving, in effect, like bone marrow. When transfused into a patient whose own blood cells have faulty genetic coding or have been destroyed by chemotherapy or other cancer treatments, the cord-blood cells can implant themselves in the bone marrow and generate legions of new, healthy cells. These days, cord-blood transplants most commonly are used in cancer patients when a donor can't be found for a bone-marrow transplant. The treatment is particularly effective in young patients-the [facility] Cord Blood Bank reports a 70 percent success rate in children, but only 20 to 40 percent in adults. Researchers envision improving those odds and see many future applications as well, such as curing sickle cell disease and other blood-related genetic illnesses. So there is a possibility that your child, or someone else, may need these super-healthy and versatile cells one day. The drawbacks Aside from not knowing about this medical option, the main reason most people do not save their baby's stem cells is cost. In a private blood bank, the initial costs run from $275 to $1,500. Most also charge a yearly storage fee of $50 to $95. The advantage of using a private bank is that your sample is saved for only you to use. An alternative to private banking Public cord-blood lainez are an alternative. These cost no money to use, but your sample is not specifically saved for you. Another person with a more immediate need may use it. If the time should come that you need stem cells, yours may still be available, or you may use donations from other people without charge. You also can direct your sample to go to a relative with an immediate need if the blood type matches. Anyone else needing to use stem cells from a public bank who has not been a donor must pay for it, sometimes tens of thousands of dollars. Will my family benefit from saving stem cells? Right now, situations in which stem cells would be helpful are quite rare. As mentioned earlier, stem-cell transplants are most commonly used for rare genetic conditions and for some types of cancer, including leukemia and lymphoma. And even with these present uses, many questions remain. In cancer treatment, for example, some researchers are concerned about the wisdom of transplanting back into the child the same cells that already showed a propensity to become malignant. Doctors also aren't sure if the number of cells taken at the time of would be enough to treat a full-grown 16-year-old. It is also not completely clear how active the cells would be after years of being stored. The treatment is so new and rare, we just don't have the data yet to resolve these important issues. What do the experts say? The [place] [employer] encourages philanthropic blood banking in public lainez, but only for families with a current or potential need. Blood-bank proponents encourage any kind of banking, pointing out that research is getting closer and closer to many diverse, live-saving applications. How do I decide? Each family must weigh the pros and cons for themselves. Some families say that any cost is worth their peace of mind. Others say that in the face of uncertainty about the effectiveness of the treatment, they will use their resources elsewhere. Some choose the middle ground of donating publicly, knowing that their sample might benefit another family, if not themselves. For more information, ask your doctor or nurse, and be sure to check out our article on the technical aspects of cord-blood banking. Technical Aspects of Cord-Blood Banking If you are interested in storing your baby's umbilical-cord blood because of its possible use in emerging medical treatments, you must make arrangements with a blood bank before your child is born. The collection procedure is quite simple: After delivery of the baby, the umbilical cord is clamped and cut in the usual way. The blood that remains in the umbilical-cord vessels is then collected in sterile containers. The blood may be removed from the cord with a large needle or allowed to flow freely, depending on the company's collection system. The containers may look like large test tubes or like the plastic bags used in a blood bank. It does not cause the mother or the baby any pain to collect the blood, and no blood is taken that the baby needs at the moment. The nurse, cash poster, or physician will then label the samples, check them over with you, and package them for a special pickup arranged with a commercial carrier. When the blood arrives at the blood-bank facility, it is processed and the parents are notified. It is then kept in an advanced storage system for years. How do I know that my sample is safe? Power outages and bankruptcies potentially could threaten any organization, but so far none have been reported. It is to be hoped that the scientists in these lainez would arrange for safe transfer to another facility if the need arose. YOU MUST MAKE ARRANGEMENTS AHEAD OF TIME! Public cord-blood lainez--DONATION: [employer] [phone] [facility], [place], [facility] U[facility]ilical Cord Blood [facility], Private cord-blood lainez--SAVING FOR YOUR OWN USE: [employer], (I think this is the least expensive) [employer] [phone] [employer], [phone]) [employer] [place] [facility], [phone], [phone] [place] [facility], Cord Blood Registry, [phone]) [employer], An Internet search may provide you with additional listings. Suzie Castano RN 03/14/2018 12:52 PM Signed #: 1, Date: 10/2015, Sex: None, Weight: None, GA: 5w0d, Delivery: None, Apgar1: None, Apgar5: None, Living: None, Comments: None #: 2, Date: 12/2015, Sex: None, Weight: None, GA: None, Delivery: None, Apgar1: None, Apgar5: None, Living: None, Comments: right tube removed #: 3, Date: 10/25/17, Sex: Male, Weight: 9 lb 14.9 oz (4.506 kg), GA: 41w1d, Delivery: , Low Transverse, Apgar1: 7, Apgar5: 9, Living: Living, Comments: Pit induction,AROM, Meconium, Non reassuring FHR #: 4, Date: None, Sex: None, Weight: None, GA: None, Delivery: None, Apgar1: None, Apgar5: None, Living: None, Comments: None Referring Provider: SELF [200] Allergies As of Date: 03/14/2018 (No Known Allergies) Date Reviewed: 03/14/2018 Reviewed by: Suzie Castano RN - Fully Assessed Reason for Visit: Care [86] Cmt: Pre-New OB Primary Visit Diagnosis: with history of ectopic , antepartum [O09.10] Other Visit Diagnoses:PREV DELIVERY [654.23] [O34.219] Short interval between pregnancies affecting , antepartum [O09.899] History of macrosomia in in prior , currently [O09.299] Previous delivery affecting , antepartum [O34.219] Quit smoking [Z87.891] Rh negative state in antepartum period [O09.899] Patient requested diagnostic testing [Z01.89] Order(s):HCG QUANTITATIVE [SQHCGQT] Order #: [id number] FUTURE HCG QUANTITATIVE [SQHCGQT] Order #: [id number] FUTURE Prescriptions as of 03/14/2018 Sig: DOCOSAHEXANOIC ACID 200 MG CA* Take by mouth once daily. IBUPROFEN 600 MG TABLET Take 1 tablet by mouth every * Patient not taking: Reported on 01/22/2018 Problem List As Of Date 03/14/2018 Noted Resolved Retained tampon [T19.2XXA] INVALID FOR*08/14/2017 More... BV (bacterial vaginosis) [N76.0, B96.89] INVALID FOR*08/14/2017 More... Genetic screening [Z13.79] INVALID FOR*10/27/2017 More... Ectopic [O00.90] INVALID FOR*10/27/2017 Rh negative state in antepartum period [O09.899]INVALID FOR* More... Post-dates [O48.0] INVALID FOR*10/27/2017 Short interval between pregnancies affecting pr*INVALID FOR* More... with history of ectopic [O0*INVALID FOR* More... History of macrosomia in in prior pregna*INVALID FOR* More... Previous delivery affecting ,*INVALID FOR* More... Quit smoking [Z87.891] INVALID FOR* More... Patient requested diagnostic testing [Z01.89] INVALID FOR* More... Other instructions from your clinician: SEQUENTIAL SCREENINGS The [facility] offers sequential screenings for women who are interested in screenings for chromosomal abnormalities and certain defects during a . The sequential screen combines ultrasound and blood tests to determine the risk of chromosomal abnormalities, including Down's Syndrome (Trisomy 21) and Trisomy 18, as well as open neural tube defects including spina bifida. Ultrasound examination is performed between 11 weeks and 13 weeks gestational age. Blood tests are drawn after the ultrasound and again later in the between 15 and 21 weeks gestational age. Please let your physician know if you are interested in this testing. It will require an appointment with our emissions repair technician. This is not an ultrasound performed by a physician in our office during a routine visit. SIGNS AND SYMPTOMS OF LABOR 1. Contractions every 10 minutes or more often 2. Clear, pink, or brownish fluid (water) leaking from vagina 3. Feeling that baby is pushing down, pressure 4. Low, dull backache 5. Cramps that feel like a period 6. Cramps with or without diarrhea If you notice any of the above symptoms, contact our office at [phone] and ask to speak with a nurse. After hours, you can call doctors [facility] at [phone] OR call [facility] at [phone] and ask to have the doctor stone circular sawyer paged. If you consider this an emergency, dial 9-1-1 or go to your nearest emergency department. Cord-Blood Banking Up until recently, the umbilical cord--along with the blood that remained in it after a baby was born and the cord cut--was simply discarded by the hospital. Then, in the late , researchers discovered that cord blood possessed unusual properties that made it useful in the treatment of patients with some cancers and other illnesses. While the actual process of collecting cord blood is straightforward, many parents are not even aware that this option now exists, much less familiar with all the issues involved. The case for saving your baby's cord blood The blood running back and forth between your baby and the placenta is full of immature cells called stem cells. Unlike embryonic stem cells, which have the ability to develop into any type of body cell, cord-blood stem cells already are locked into a certain, vital function: making all the different components of the blood, such as platelets, white blood cells, and red blood cells-serving, in effect, like bone marrow. When transfused into a patient whose own blood cells have faulty genetic coding or have been destroyed by chemotherapy or other cancer treatments, the cord-blood cells can implant themselves in the bone marrow and generate legions of new, healthy cells. These days, cord-blood transplants most commonly are used in cancer patients when a donor can't be found for a bone-marrow transplant. The treatment is particularly effective in young patients- the [facility] Cord [facility] reports a 70 percent success rate in children, but only 20 to 40 percent in adults. Researchers envision improving those odds and see many future applications as well, such as curing sickle cell disease and other blood-related genetic illnesses. So there is a possibility that your child, or someone else, may need these super-healthy and versatile cells one day. The drawbacks Aside from not knowing about this medical option, the main reason most people do not save their baby's stem cells is cost. In a private blood bank, the initial costs run from $275 to $1,500. Most also charge a yearly storage fee of $50 to $95. The advantage of using a private bank is that your sample is saved for only you to use. An alternative to private banking Public cord-blood lainez are an alternative. These cost no money to use, but your sample is not specifically saved for you. Another person with a more immediate need may use it. If the time should come that you need stem cells, yours may still be available, or you may use donations from other people without charge. You also can direct your sample to go to a relative with an immediate need if the blood type matches. Anyone else needing to use stem cells from a public bank who has not been a donor must pay for it, sometimes tens of thousands of dollars. Will my family benefit from saving stem cells? Right now, situations in which stem cells would be helpful are quite rare. As mentioned earlier, stem-cell transplants are most commonly used for rare genetic conditions and for some types of cancer, including leukemia and lymphoma. And even with these present uses, many questions remain. In cancer treatment, for example, some researchers are concerned about the wisdom of transplanting back into the child the same cells that already showed a propensity to become malignant. Doctors also aren't sure if the number of cells taken at the time of would be enough to treat a full-grown 16-year-old. It is also not completely clear how active the cells would be after years of being stored. The treatment is so new and rare, we just don't have the data yet to resolve these important issues. What do the experts say? The [place] [employer] encourages philanthropic blood banking in public lainez, but only for families with a current or potential need. Blood-bank proponents encourage any kind of banking, pointing out that research is getting closer and closer to many diverse, live-saving applications. How do I decide? Each family must weigh the pros and cons for themselves. Some families say that any cost is worth their peace of mind. Others say that in the face of uncertainty about the effectiveness of the treatment, they will use their resources elsewhere. Some choose the middle ground of donating publicly, knowing that their sample might benefit another family, if not themselves. For more information, ask your doctor or nurse, and be sure to check out our article on the technical aspects of cord-blood banking. Technical Aspects of Cord-Blood Banking If you are interested in storing your baby's umbilical- cord blood because of its possible use in emerging medical treatments, you must make arrangements with a blood bank before your child is born. The collection procedure is quite simple: After delivery of the baby, the umbilical cord is clamped and cut in the usual way. The blood that remains in the umbilical-cord vessels is then collected in sterile containers. The blood may be removed from the cord with a large needle or allowed to flow freely, depending on the company's collection system. The containers may look like large test tubes or like the plastic bags used in a blood bank. It does not cause the mother or the baby any pain to collect the blood, and no blood is taken that the baby needs at the moment. The nurse, cash poster, or physician will then label the samples, check them over with you, and package them for a special pickup arranged with a commercial carrier. When the blood arrives at the blood- bank facility, it is processed and the parents are notified. It is then kept in an advanced storage system for years. How do I know that my sample is safe? Power outages and bankruptcies potentially could threaten any organization, but so far none have been reported. It is to be hoped that the scientists in these lainez would arrange for safe transfer to another facility if the need arose. YOU MUST MAKE ARRANGEMENTS AHEAD OF TIME! Public cord-blood lainez--DONATION: [employer] [phone] [facility], [place], [facility] Cord Blood [facility], Private cord-blood lainez--SAVING FOR YOUR OWN USE: [employer], (I think this is the least expensive) [employer] [phone] [employer], (874) [employer] [place] [facility], [phone]-[employer], [phone] [place] [facility], Cord Blood [facility], (690) [facility] [employer], An Internet search may provide you with additional listings. Disposition: Return in 3 weeks (on 04/01/2018) for New OB with Dr Angel. Follow-up and Disposition History Recorded Encounter Status:Closed by SUZIE CASTANO RN on 03/14/18 PROGRESS Observed: 01/22/2018 Status: COMPLETED Source: [place] 4:26 PM [facility] REPOSITORY HNO ID: [id number] Author: Snow Araujo) Lobo Service: (none) Author Type: Physician Type: Progress Notes Filed: 01/22/2018 4:36 PM Note Text: Chief Complaint Patient presents with: lump in throat: x 3 weeks HPI Marta King is a 27 year old female who presents here today for Above Complaints.. Lesion noticed about 2-3 weeks ago by boyfriend, not sure how long this has actually been present. Has not changed at all since that time and has been checking it in the mirror regularly at home. Denies pain, bleeding, sore throat, fever, chills, lymphadenopathy, difficulty swallowing. Not treating at home with anything. Past medical history, appointments, medications, allergies reviewed. Previous Medical History PAST MEDICAL HISTORY Diagnosis Date - Chlamydia - Ectopic - Miscarriage Previous Surgical History PAST SURGICAL HISTORY Procedure Laterality Date - EXTRACTION ERUPTED TOOTH/EXR 2007 - REMOVAL OF FALLOPIAN TUBE 12/2015 Right tube Family History FAMILY HISTORY Problem Relation Age of Onset - Cancer Maternal Grandmother - Cervical Cancer Maternal Grandmother - Diabetes Brother - Cancer Other maternal fam hx of lung,colon, vulva - Hypertension Other maternal fam hx Patient Allergies ALLERGIES No Known Allergies Current Medications Current Outpatient Prescriptions on File Prior to Visit: Docosahexanoic Acid (DHA ) 200 mg cap Take by mouth once daily. oxyCODONE IR (ROXICODONE) 5 mg immediate release tablet Take 1-2 tablets by mouth every 6 hours as needed. ibuprofen (MOTRIN) 600 mg tablet Take 1 tablet by mouth every 6 hours as needed. (Patient not taking: Reported on 01/22/2018 ) #108-IRON,CARBONYL-FA ORAL Take by mouth once daily. No current facility-administered medications on file prior to visit. Social History Social History Marital status: Single Spouse name: Years of education: Number of children: 0 Social History Main Topics Smoking status: Former Smoker Packs/day: 0.00 Years: 3.00 Types: Cigarettes Quit date: 02/21/2017 Smokeless status: Never Used Alcohol use: No Comment: occ Drug use: No Sexual activity: Yes Partners with: Male control/protection: None Other Topics Concern Service No Blood Transfusions No Caffeine Concern Yes Occupational Exposure Yes Hobby Hazards No Sleep Concern No Stress Concern No Weight Concern No Special Diet No Back Care No Exercise Yes Comment:7x daily Bike Helmet No Seat Belt Yes Self-Exams Yes Social History Narrative Merged History Encounter Review of Symptoms REVIEW OF SYSTEMS GENERAL: No weight loss, malaise or fevers NECK: Negative for lumps, goiter, pain and significant neck swelling RESPIRATORY: Negative for cough, hemoptysis, wheezing, COPD, dyspnea or shortness of breath CARDIOVASCULAR: Negative for chest pain, leg swelling, hypertension, CHF or palpitations EXAM: BP 128/82 Pulse 82 Temp 37.3 ?C (99.2 ?F) (Temporal Artery) Resp 14 Wt 77.1 kg (170 lb) ? Yes BMI 27.44 kg/m2 General Appearance: Well appearing, alert, in no acute distress, well-hydrated, well nourished.. Skin: Skin color, texture, turgor normal, no suspicious rashes or lesions. Oropharynx: Positive findings: Patient has pedunculated pale colored excess tissue on left tonsil, about the size of a pea, without bleeding or purulence. Right tonsil normal. Neck: Supple, no adenopathy; thyroid symmetric, normal size, no bruits. Lungs: Lungs clear to auscultation. No wheezing, rhonchi, rales. Heart: RRR without murmur, gallop, or rubs. No ectopy. Health Maintenance List HPV VACCINE(1 of 3 - Female 3 Dose Series) due on 2003 TETANUS due on 12/04/2015 INFLUENZA(1) due on 07/27/2017 PAP EVERY 3 YEARS (21-30 YEAR OLDS) due on 03/27/2020 ASSESSMENT/PLAN: 1. Lesion of tonsil - ICD9: 474.9, ICD10: J35.9 Will refer to ENT for further evaluation and possible biopsy of tissue. Will follow up results. Patient to follow up in 4 months with this practice to establish care. - CONSULT TO ENT Snow Diamond MD ALLERGIES ALLERGIES DATE TYPE / CODE NAME / CODE REACTION SEVERITY SOURCE 11/15/2018 Drug No Known Unknown [facility] Allergy/416 Allergies/J12638 Hospital 433843(SNOM 0388(RXNORM) Repository ED CT) Drug NO KNOWN [facility] Class/50557 ALLERGIES [place] 1003(SNOMED Repository CT) ENCOUNTERS ENCOUNTERS ADMIT/DISCHARGE ACCOUNT NUMBER ADMITTING ENCOUNTER LOCATION SOURCE CLASS 11/29/2018/12/02/19 [id number] Ambulatory [address] [place] Repository 11/15/2018/11/17/20 [id number] Harini, Inpatient [place] Bessie 18 [place] Encounter [facility] ding:WPRoom: Repository [id number]: 1 11/15/2018 [id number] [facility] Rep[facility] 11/12/2018/11/13/20 [id number] Ambulatory [place] [facility] [place] Repository 11/08/2018/11/12/20 [id number] Ambulatory [place] [facility] [place] Repository 11/08/2018/11/12/20 [id number] Ambulatory [place] [facility] [place] Repository 11/05/2018/11/05/20 [id number] Ambulatory [place] ding:WPOUTRo Repository om: [id number] 11/01/2018/11/04/20 [id number] Ambulatory [place] [facility] [place] Repository 10/31/2018/10/31/20 [id number] Ambulatory [place] ding:WPOUTRo Repository om: [id number] 10/29/2018/10/30/20 [id number] Ambulatory [place] [facility] [place] Repository 10/25/2018/10/28/20 [id number] Ambulatory [place] [facility] [place] Repository 10/18/2018/11/05/20 [id number] Ambulatory [place] [facility] [place] Repository 10/04/2018/10/09/20 [id number] Ambulatory [place] [facility] [place] Repository 09/20/2018/09/23/20 [id number] Ambulatory [place] [facility] [place] Repository 09/06/2018/09/09/20 [id number] Ambulatory [place] [facility] [place] Repository 08/31/2018/08/31/20 [id number] Ambulatory [place] [facility] [place] Repository 08/23/2018/08/23/20 [id number] Ambulatory [place] [facility] [place] Repository 08/23/2018/08/29/20 [id number] Ambulatory [place] [facility] [place] Repository 07/24/2018/07/25/20 [id number] Ambulatory [place] [facility] [place] Repository 06/26/2018/06/27/20 [id number] Ambulatory [place] [facility] [place] Repository 06/26/2018/06/27/20 [id number] Ambulatory [place] [facility] [place] Repository 06/20/2018/06/20/20 [id number] Emergency BBuilding:JAD Holder [address] [place] [address] Repository 05/31/2018/05/31/20 [id number] Ambulatory [address] [place] Repository 05/31/2018/06/03/20 [id number] Ambulatory [address] [place] Repository 05/02/2018 [id number] Ambulatory [facility] [place] Repository 05/02/2018/05/06/20 [id number] Ambulatory [address] [place] Repository 05/02/2018/05/07/20 [id number] Ambulatory [address] [place] Repository 04/01/2018/04/04/20 [id number] Ambulatory [address] [place] Repository 03/21/2018/03/22/20 [id number] Ambulatory [address] [place] Repository 03/16/2018/03/16/20 [id number] Ambulatory [address] Repository 03/14/2018/03/19/20 [id number] Ambulatory [address] [place] Repository 01/22/2018/01/26/20 [id number] Ambulatory [address] Repository PAYERS PAYERS ENCOUNTER GUARANTOR PAYER SUBSCRIBER SOURCE 11/15/2018 MARTA C Primary MARTA C [place] [id number] Insurance:CARESOURCEP TILLISONDOB: [facility]: [id number] [id number] Repository id [id number]: Date:2018-10-18[address]ATTN: CLAIMS () [place] [address]LF: 11/15/2018 Secondary NOT GIVENUNK [place] Insurance:SELF PAY [facility] Number: Effective Repository Date:2018-10-18 11/15/2018 MARTA C Primary MARTA C [place] [id number] Insurance:CARESOURCEP TILLISONB: [facility] Number: [id number] [id number] [place]ository [place] [id number]: Date:2018-11-12[address]ATTN: CLAIMS () [place] [address]UP: 11/15/2018 Secondary NOT GIVENUNK [place] Insurance:SELF PAY [facility] Number: Effective Repository Date:2018-11-12 11/05/2018 MARTA C Primary MARTA C [place] [id number] Insurance:CARESOURCEP TILLISONDOB: [facility] Number: [id number], [id number] [place]ository [place] [id number]: Date:2018-11-05[address]ATTN: CLAIMS () [place] [address]GE: 11/05/2018 Secondary NOT GIVENUNK [place] Insurance:SELF PAY [facility] Number: Effective Repository Date:2018-11-05 10/31/2018 MARTA C Primary MARTA C [place] [id number] E Insurance:CARESOURCEP TILLISONDOB: [facility] oss health Number: [id number] [id number] Repository [address]Nvy: 330) Date:2018-10-31 O [phone] () [address]ATTN: [place] [address]FB: 10/31/2018 Secondary NOT GIVENUNK [place] Insurance:SELF PAY [facility] Number: Effective Repository Date:2018-10-31 06/20/2018 MARTA C Primary MARTA C [facility] TILLISONDOB: Insurance:CARESOURCE TILLISONDOB: [facility] [id number] Repository [place] Number: [facility], [id number] [place], [place] [address]Jcw: Date:2018-06-20 - [place] [address]Slp: [id number] ()Tel: ([phone]) Name:[address] () ([place]) [address], [place] [phone] (WP) [phone]:
== END 2018-11-05 21:05 | disposition home or self-care (01) ==
LOC: WPOUT 20:10 → WP 20:11
PROVIDERS: Referring Provider Obstetrics & Gynecology; Visit Provider Obstetrics & Gynecology
DX: O26.893 Other specified pregnancy related conditions, third trimester (principal); N89.8 Other specified noninflammatory disorders of vagina; Z3A.38 38 weeks gestation of pregnancy
CPT/HCPCS: 59025; 59050; 84112; 99218; G0378

== ENCOUNTER 2018-11-15 10:15 | Inpatient (IN) | payer MEDICAID, SELFPAY ==
[2018-11-15] VITALS (21 sets, daily range): BP systolic 105–128; BP diastolic 58–77; PULSE 58–101; RESP 16–18; TEMP 36.2–36.9; O2SAT 94–99; BMI 32.4
[2018-11-15] MEDS: Lactated Ringers 1,000 ML 999 ML IV (10:40)
[2018-11-15 10:55] LABS: Absolute Lymphocyte Count 1.99 X10^3/ul (0.83-4.51); Absolute Neutrophil Count 6.8 X10^3/uL (2.0-7.7); Basophil# 0.02 X10^3/uL; Basophil% 0.2 % (0-1); Eosinophil# 0.05 X10^3/uL; Eosinophils% 0.5 % (0-5); Hematocrit 31.6 % (37-47); Hemoglobin 10.4 g/dl (12.0-15.0); Lymphocyte # 1.99 X10^3/ul (4.0); Lymphocyte % 20.7 % (19-41); Mean Corp Hgb Conc 32.9 g/gl (32-36); Mean Corpuscular Hgb 29.1 pg (27.0-32.0); Mean Corpuscular Volume 88.5 fL (81-99); Mean Platelet Vol. 8.7 fl (6.2-12.0); Monocyte% 7.3 % (0-10); Neutrophil # 6.84 X10^3/uL (2.7-7.7); Neutrophil % 71.1 % (47-70); POSITIVE COUNT NO; POSITIVE DIFFERENTIAL NO; POSITIVE MORPHOLOGY NO; Platelet Count 282 K/mm3 (150-450); RBC Distribution Width CV 12.7 % (11.6-14.6); RBC Distribution Width SD 40.7 fl (35.1-43.9); Red Blood Count 3.57 M/mm3 (4.2-5.4); White Blood Count 9.6 K/mm3 (4.4-11.0)
[2018-11-15] MEDS: Sodium Citrate/Citric Acid 30 ML UDC PO (11:54)
[2018-11-15] MEDS: Cefazolin 2 GM in 0.9% Normal Saline 100 ML IV (11:57)
[2018-11-15] MEDS: Oxytocin 30 units/NS 500 ml 30 UNITS/500 ML IV.SOLN 167 UNITS IV (12:36)
--- NOTE | 2018-11-15 13:06 | OP.PCM_ITS ---
Delivery Classification: Scheduled Final MORENO: 11/18/18 Final MORENO Source: US <20 weeks Gestational age: 39 Weeks and 4 Days Indications for : Repeat Elective Description of Procedure: The patient was taken to the operating room. She was prepped and draped in the dorsal supine position with a leftward tilt. A Pfannenstiel skin incision was made approximately 2 cm above the symphysis pubis and carried through to underlying layer fascia with the scalpel. The fascia was incised incised in the midline and extended laterally with the Chilel scissors. The fascia was dissected off the rectus muscles with blunt and sharp dissection. The rectus muscles were in the midline and the peritoneum was entered bluntly. The peritoneal incision was stretched and the bladder blade was placed. The uterine incision was made in a low transverse fashion with the scalpel and extended superiorly and inferiorly with blunt dissection. The amniotic membranes were ruptured and moderate meconium-stained fluid was noted. The nurses were notified. The 's head was brought to the incision in the flexed position, and initially wouldn't engage. The incision was stretched slightly and no areas that were preventing delivery were noted, the angle of the vertex was shifted slightly and then the and delivered without difficulty. The remainder of the was delivered with gentle traction and fundal pressure in the standard fashion. The mouth and nares were bulb suctioned. The cord was clamped and cut as the was stimulated. Cord clamping was delayed approximately 30 seconds. The was handed off to the waiting nursing staff. The placenta was delivered with fundal massage and gentle traction in the standard fashion. The uterus was exteriorized and cleared of all clots and debris. The cervix was dilated with a ring forcep. The uterine incision was closed with #1 Vicryl in a running locked fashion. A second layer of the same suture was used in an imbricating fashion. The incision was examined and was found to be hemostatic. The uterus was placed back into the peritoneal cavity and hemostasis was again confirmed. The rectus muscles were examined and any bleeding was Bovie cauterized. The parietal peritoneum was closed with 3-0 Vicryl suture and the rectus muscles were reapproximated with an 0 Vicryl running suture. The schaffer rgical teams outer gloves were then changed. The rectus fascia was examined and any bleeding was Bovie cauterized and the rectus fascia was closed with 1 Vicryl suture in a running standard fashion. The subcutaneous tissue was examining and any bleeding was Bovie cauterized. The subcutaneous tissue was reapproximated with 3-0 Vicryl suture. The skin was closed in a subcuticular fashion by the MENTAL HEALTH TECHNICIAN with me present in the labor and delivery suite. I performed the remainder of the procedure with assistance. All sponge, lap, and needle counts were correct. The patient was taken to her room for recovery in a stable condition. Amniotic Membrane Rupture Type: Artificial Amniotic Fluid Description: Moderate meconium Placenta Disposition: [facility] Specimen(s) sent to pathology: None Drain: Mason to straight drain Fluids Replaced: 1200cc Cord Entanglement: None Cord Vessel Description: 3 Vessels Esitmated Blood Loss (ml): 800 Gender: Female (1 minute): 8 (5 minute): 9 Delayed cord clamping: Yes Complications: None - Admit VTE Documentation VTE Present on Admission: No VTE Mechan Device Prophylaxis: SCD's VTE Pharm Prophylaxis ordered?: No Reason prophylaxis not ordered:: Procedure Not Indicated
[2018-11-15] MEDS: Nalbuphine 10 MG/ML Ampul 5 MG IV ×3 (15:37→22:14)
[2018-11-15] MEDS: Ketorolac 30 MG/ML Syringe IV (18:20)
[2018-11-15] MEDS: Lactated Ringers 1,000 ML 100 ML IV (18:21)
[2018-11-15] MEDS: Senna/Docusate Sodium 1 Tablet PO (21:51)
[2018-11-15] MEDS: 0.9% Saline Lock 10 ML Syringe IV (22:15)
[2018-11-16] VITALS (10 sets, daily range): BP systolic 95–138; BP diastolic 58–80; PULSE 80–118; RESP 16–20; TEMP 36.3–36.9; O2SAT 95–99
[2018-11-16] MEDS: Ketorolac 30 MG/ML Syringe IV ×5 (00:06→23:29)
[2018-11-16] MEDS: 0.9% Saline Lock 10 ML Syringe IV ×7 (00:06→23:29)
[2018-11-16] MEDS: Nalbuphine 10 MG/ML Ampul 5 MG IV (01:38)
[2018-11-16] MEDS: Lactated Ringers 1,000 ML 100 ML IV (03:38)
[2018-11-16 06:30] LABS: Hematocrit 28.4 % (37-47); Hemoglobin 9.2 g/dl (12.0-15.0); Mean Corp Hgb Conc 32.4 g/gl (32-36); Mean Corpuscular Hgb 28.9 pg (27.0-32.0); Mean Corpuscular Volume 89.3 fL (81-99); Mean Platelet Vol. 8.4 fl (6.2-12.0); Platelet Count 222 K/mm3 (150-450); RBC Distribution Width CV 12.9 % (11.6-14.6); RBC Distribution Width SD 41.8 fl (35.1-43.9); Red Blood Count 3.18 M/mm3 (4.2-5.4); White Blood Count 10.7 K/mm3 (4.4-11.0)
[2018-11-16 06:32] LABS: Scan Indicated on CBC? Y/N NO
[2018-11-16] MEDS: Senna/Docusate Sodium 1 Tablet PO (10:11)
--- NOTE | 2018-11-16 10:42 | CASEMGMT ---
SW reviewed chart and spoke with patient's RN. SW met with patient, introduced self and role at [facility]. She was open to talking with SW. Confirmed address and phone number. Patient lives with significant other and their 1 yr old boy. Significant other is Ho and he is also the father of this baby. 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 Ho also works. patient will breast feed. She has all necessary supplies for baby. There are no transportation issues. Patient denies any history of anxiety, depression, or any other mental health illness. She denies ever using cocaine or any other drugs. She denies that father of baby has any substance abuse issues. She denied any past involvement with [facility]. SW did leave a packet of resources for patient. RN updated. Plan: d/c home with baby Angi Cindy BURGOS
--- NOTE | 2018-11-16 12:33 | NURSING ---
previous drainage circled, new drainage noted on L side, minimal. New drainage circled
--- NOTE | 2018-11-16 14:38 | PCM.PN.OB ---
Subjective: Doing well per patient and nursing staff. Ambulating and taking PO without difficulty. Voiding and passing flatus, haider out. without complaints. Denies any increased headache, visual changes, chest pain, SOB, leg pain, increased bleeding or clots. Pain controlled. - Physical Exam General: Alert, Oriented x3, Cooperative HEENT: Atraumatic, Normocephalic Lungs: Clear to auscultation, Normal air movement, No rhonchi, No wheeze Cardiovascular: Regular rate, Regular Rhythm, No murmurs Abdomen: - - Fundus firm 2 below U. Incision intact, small amount of blood present, dry on dressing. Extremities: No edema Neurological: Deep Tendon Reflexes 2+/4 and Symmetrical Psych/Mental Status: Normal Affect, Appropriate Vital Signs Temp Pulse Resp BP Pulse Ox 98.0 F 86 18 110/64 97 11/16/18 12:00 11/16/18 12:00 11/16/18 12:00 11/16/18 12:00 11/16/18 12:00 Oxygen Delivery Method Room Air Weight: 201 lb Body Mass Index (BMI) 32.4 Intake and Output for Last 24 Hours 11/14/18 11/15/18 11/16/18 23:59 23:59 23:59 Intake Total 2342 / 2342 1367 / 1367 Output Total 1400 / 1400 4800 / 4800 Balance 942 / 942 -3433 / -3433 Laboratory Tests Past 24 Hrs 11/15/18 11/15/18 11/15/18 10:40 10:40 10:40 WBC RBC Hgb Hct MCV MCH MCHC RDW RDW Differential Plt Count MPV Blood Type O NEGATIVE Antibody Screen POSITIVE H Antibody Identification ANTI-D Antigen Identification C ANTIGEN - NEGATIVE E ANTIGEN - NEGATIVE K ANTIGEN - NEGATIVE Screen Baby's Blood Type Baby's MARCY Crossmatch See Detail 11/15/18 11/16/18 18:40 06:00 WBC 10.7 RBC 3.18 L Hgb 9.2 L Hct 28.4 L MCV 89.3 MCH 28.9 MCHC 32.4 RDW 12.9 RDW Differential 41.8 Plt Count 222 MPV 8.4 Blood Type Antibody Screen Antibody Identification Antigen Identification Screen NEGATIVE Baby's Blood Type O POSITIVE Baby's MARCY POSITIVE Crossmatch Medical Necessity - Tobacco Use Smoking Status: Former smoker Assessment/Plan All Active Problems Vaginal discharge during (Acute) A:POD #1 Elective Repeat Section P: 1) Routine post op and care 2) Pain controlled 3) Planning D/C home tomorrow.
--- NOTE | 2018-11-16 14:48 | DCINST_ITS ---
Discharge Diet: No Restrictions Discharge Activity: May not drive while taking narcotic pain medications., May Shower May resume sexual activity in: 4-6 weeks Weight Bearing Status: Full weight bearing Lifting Restrictions: 20 pounds Additional Activity Instructions:: Nothing in the vagina for 4-6 weeks. You may return to work/school in 6 weeks. Call your doctor if your incision/area has: Continuous Slow Oozing, Sudden Increased Bleeding, Increased Pain/ Swelling, Increased Redness, Foul Smelling Discharge Call your doctor if you observe: Fever of 101 or Higher, Coldness, Increased Pain, Inability to urinate, Inability to have a bowel movement, Using more than one pad per hour, Shortness of breath, Chest pain, Increased palpitations (irregular heartbeat), Calf discomfort, Uncontrolled pain Suture Line Care: Avoid Pulling/Pushing, Avoid Pinching/Bending Remove Dressing in (days):: 5 Cleanse incision/area with: Keep Dressing Clean & Dry Additional Instructions: If you experience any of the following, contact your healthcare provider. * Bleeding that soaks a pad every hour for 2 hours * Fever 100.4 or higher * Unrelieved incision or abdominal pain * Swelling, redness, discharge or bleeding from your incision or episiotomy site * Your incision begins to separate * Problems urinating (including inability to urinate or burning while urinating). * Visual changes * Severe headache * Flu-like symptoms * Pain or redness in one of both of your breasts * Pain, warmth, tenderness or swelling in your legs, especially the calf area * Frequent nausea and vomiting * Symptoms of depression or anxiety If you experience any of the following, call 911 or go to the nearest Emergency Room. * Chest pain * Problems breathing * Seizure activity * Partial or complete paralysis of a body part, slurred speech, weakness or drooping of the face, or a sudden inability to walk or hold your balance Allergies/Adverse Reactions: Allergies No Known Allergies Allergy (Verified 11/15/18 11:28) Medications to take at Discharge Vits [Prenatabs FA ] 1 tablet PO DAILY 02/10/16 Docusate Sodium [Colace] 100 mg PO BID capsule 11/16/18 Naproxen [Naprosyn] 250 - 500 mg PO Q8H PRN PRN #30 tablet 11/16/18 Oxycodone HCl/Acetaminophen [Percocet 5/325] 1 - 2 tab PO Q4H PRN PRN 7 Days #20 tab 11/16/18 The following prescriptions were given: Oxycodone HCl/Acetaminophen [Percocet 5/325] 1 - 2 tab PO Q4H PRN PRN 7 Days #20 tab PRN Reason: Pain Naproxen [Naprosyn] 250 - 500 mg PO Q8H PRN PRN #30 tablet PRN Reason: Mild Pain () Follow-Up: Call to make an appointment with your doctor for an incision check in 1-2 weeks. You will also need a 6 week post- follow up appointment. Test results from this visit will be discussed in further detail at your follow- up appointment, if applicable. Please Follow Up With: Ladonna Barron MD Primary Care Physician: Care Physician,No Primary [Primary Care Provider] -
[2018-11-16] MEDS: Docusate Sodium 100 MG Capsule PO (20:26)
[2018-11-16] MEDS: oxyCODONE 5 MG Tablet PO (20:26)
[2018-11-17 01:10] VITALS: BP 119/78; PULSE 87; RESP 18; TEMP 36.4
[2018-11-17] MEDS: oxyCODONE 5 MG Tablet PO ×3 (01:16→12:19)
[2018-11-17] MEDS: 0.9% Saline Lock 10 ML Syringe IV (05:29)
[2018-11-17] MEDS: Ketorolac 30 MG/ML Syringe IV (05:29)
[2018-11-17 08:00] VITALS: BP 126/82; PULSE 109; RESP 16; TEMP 36.8; O2SAT 98
[2018-11-17] MEDS: Docusate Sodium 100 MG Capsule PO (10:15)
--- NOTE | 2018-11-17 13:01 | PCM.PN.OB ---
Subjective: Doing well per patient and nursing staff. Ambulating and having bowel movements Denies any increased pain, vaginal bleeding or clots. Pain controlled. Denies headache, visual changes, CP. SOB, leg pain, or other concerns. Discharge home today. - Physical Exam General: Alert, Oriented x3, Cooperative HEENT: Atraumatic, Normocephalic Lungs: Clear to auscultation, Normal air movement, No rhonchi, No wheeze Cardiovascular: Regular rate, Regular Rhythm, No murmurs Abdomen: Bowel Sounds Present, - - Dressing intact. Dried blood present and saturated area not increased in size from yesterday. Dressing removed to inspect, incision well approximated with no drainage, steri strips in place. Sterile silver dressing reapplied. Extremities: No edema, - - nneka's negative Psych/Mental Status: Normal Affect, Appropriate Vital Signs Temp Pulse Resp BP Pulse Ox 98.2 F 109 H 16 126/82 H 98 11/17/18 08:00 11/17/18 08:00 11/17/18 08:00 11/17/18 08:00 11/17/18 08:00 Oxygen Delivery Method Room Air Weight: 201 lb Body Mass Index (BMI) 32.4 Intake and Output for Last 24 Hours 11/15/18 11/16/18 11/17/18 23:59 23:59 23:59 Intake Total 2342 / 2342 1367 / 1367 Output Total 1400 / 1400 5400 / 5400 Balance 942 / 942 -4033 / -4033 Medical Necessity - Tobacco Use Smoking Status: Former smoker Assessment/Plan All Active Problems Vaginal discharge during (Acute) A; POD #2 Repeat section P: 1) Routine postop and care. Discharge instructions given. 2) Follow up in 2 weeks for incision check and 6 weeks for visit. 3) Remove dressing in 5 days. Reviewed when to call or if bleeding from incision returns. 4) Percocet Rx for pain 5) Discharge home.
--- NOTE | 2018-11-17 13:06 | PCM.DC.SUM ---
Discharge Date and Diagnosis Date of Admission: 11/15/18 Date of Discharge: 11/17/18 - Primary Discharge Diagnosis Repeat Section Hospital Course and Treatment Operations: - - Section Procedures: None Summary of Care Provided: The patient is a 28 year old F for Repeat Section. Hospital course uncomplicated. - Physical Exam Vital Signs Temp Pulse Resp BP Pulse Ox 98.2 F 109 H 16 126/82 H 98 11/17/18 08:00 11/17/18 08:00 11/17/18 08:00 11/17/18 08:00 11/17/18 08:00 Oxygen Delivery Method Room Air Weight: 201 lb Body Mass Index (BMI) 32.4 Intake and Output for Last 24 Hours 11/15/18 11/16/18 11/17/18 23:59 23:59 23:59 Intake Total 2342 / 2342 1367 / 1367 Output Total 1400 / 1400 5400 / 5400 Balance 942 / 942 -4033 / -4033 Discharge Diet: No Restrictions Discharge Activity: May not drive while taking narcotic pain medications., May Shower May resume sexual activity in: 4-6 weeks Weight Bearing Status: Full weight bearing Additional Activity Instructions:: Nothing in the vagina for 4-6 weeks. You may return to work/school in 6 weeks. Call your doctor if your incision/area has: Continuous Slow Oozing, Sudden Increased Bleeding, Increased Pain/ Swelling, Increased Redness, Foul Smelling Discharge Call your doctor if you observe: Fever of 101 or Higher, Coldness, Increased Pain, Inability to urinate, Inability to have a bowel movement, Using more than one pad per hour, Shortness of breath, Chest pain, Increased palpitations (irregular heartbeat), Calf discomfort, Uncontrolled pain Suture Line Care: Avoid Pulling/Pushing, Avoid Pinching/Bending Remove Dressing in (days):: 5 Cleanse incision/area with: Keep Dressing Clean & Dry Home Medications: Medications to take at Discharge Vits [Prenatabs FA ] 1 tablet PO DAILY 02/10/16 Docusate Sodium [Colace] 100 mg PO BID capsule 11/16/18 Naproxen [Naprosyn] 250 - 500 mg PO Q8H PRN PRN #30 tablet 11/16/18 Oxycodone HCl/Acetaminophen [Percocet 5/325] 1 - 2 tab PO Q4H PRN PRN 7 Days #20 tab 11/16/18 Following Prescrptions Were Given to Patient: Oxycodone HCl/Acetaminophen [Percocet 5/325] 1 - 2 tab PO Q4H PRN PRN 7 Days #20 tab PRN Reason: Pain Naproxen [Naprosyn] 250 - 500 mg PO Q8H PRN PRN #30 tablet PRN Reason: Mild Pain () Primary Care Physician: Care Physician,No Primary [Primary Care Provider] - Please Follow Up With: Ladonna Barron MD Medical Necessity - Tobacco Use Smoking Status: Former smoker Meaningful Use Info Meaningful Use Diagnoses (Choose all that apply): None applicable
[2018-11-17 13:40] VITALS: BP 133/85; PULSE 106; RESP 16; TEMP 37; O2SAT 98
--- NOTE | 2018-11-17 13:40 | NURSING ---
dressing changed per leas Dowellife
== END 2018-11-17 14:00 | disposition home or self-care (01) | DRG 540 ==
PROVIDERS: Obstetrics & Gynecology; Admitting Provider Obstetrics & Gynecology; Referring Provider Obstetrics & Gynecology; Visit Provider Obstetrics & Gynecology
PROC: 10D00Z1 Extraction of Products of Conception, Low, Open Approach (ICD-10-PCS; CPT 59514; principal; 2018-11-15 11:45)
DX: O34.211 Maternal care for low transverse scar from previous cesarean delivery (principal); Z3A.39 39 weeks gestation of pregnancy; Z37.0 Single live birth; O77.0 Labor and delivery complicated by meconium in amniotic fluid; Z87.891 Personal history of nicotine dependence
CPT/HCPCS: 85025; 85027; 85461; 86850; 86870; 86900; 86902; 86905; 86920; 86922; 90384; 99218; J7120; A4216; G0378; J2405; J2790

== ENCOUNTER 2019-04-10 06:10 | Day surgery (SDC) | payer MEDICAID, SELFPAY ==
[2018-11-15 11:12] VITALS: BMI 32.4
--- NOTE | 2019-04-09 18:06 | PCM.HP.OB ---
- Problem List (1) Sterilization Status: Acute History Date of Admission: 04/10/19 Final MORENO Source: US <20 weeks History of this : This is a 28 year-old multiparous patient who desires permanent sterilization. Medical History: Medical History (Last Updated 04/09/19 @ 18:09 by Yolanda Peters DO) delivery delivered O82 Chlamydia A74.9 Ectopic O00.90 Surgical History: Surgical History (Last Updated 04/09/19 @ 18:09 by Yolanda Pteers DO) H/O laparoscopy Z98.890 H/O oral surgery Z98.890 Allergies No Known Allergies Allergy (Verified 11/15/18 11:28) Home Medications: Home Medications Vits [Prenatabs FA ] 1 tablet PO DAILY 02/10/16 Smoking Status: Former smoker History Past Pregnancies: Past Pregnancies Delivery Date Name GA/Weeks Outcome Route Weight Infant Gender Labor Length Anesthesia Delivery Location Provider FOB Review of Systems Constitutional: Denies: Malaise Eyes: Denies: Blurred vision HEENT: Denies: Head Aches Cardiovascular: Denies: Chest Pain Respiratory: Denies: Shortness of Breath Gastrointestinal: Denies: Abdominal Pain Genitourinary: Denies: Dysuria Neurological: Denies: Double vision, Tremor, Seizures Psychiatric: Denies: Anxiety, Depression Physical Exam General: Alert, No apparent distress HEENT: Atraumatic Cardiovascular: Regular rate Lungs: - - No increased resp effort Abdomen: Soft, Non Tender Extremities:: No edema Neurological: Neuro grossly intact Assessment/Plan All Active Problems Vaginal discharge during (Acute) Sterilization (Acute) This is a 28 year-old multiparous patient who is 100% certain she desires permanent sterilization after discussion of risks, benefits, and alternatives.
--- NOTE | 2019-04-10 | FALS_PTH ---
PATIENT: ALVARADO KING LOC: [facility] U#:[id number] AGE/SX: 28/F ROOM: RE04/10/[address]: Dr. Yolanda Peters DO : 1990 BED: DIS: 04/10/2019 SPEC #: [id number] RECD: 04/10/19 13:07 STATUS: ELENA JESSICA #: [id number] COLLETTE: 04/10/19 00:[address]: Yolanda Peters DEPT: SURGICAL PATHOLOGY RECD BY: Aramis Sneed ENTERED: 04/10/19 13:07 SP TYPE: FALL TUBES OTHR DR: Lesa Primary Care Phys Tissues: Fallopian tube Procedures: Surgery Specimen Level II HEADER OPERATION: Laparoscopic left salpingectomy PRE-OP DIAGNOSIS: Desires permanent sterilization TISSUE SUBMITTED: Left fallopian tube MICROSCOPIC DIAGNOSIS Left fallopian tube, salpingectomy: Complete segment of fallopian tube with no pathologic change. AM:omayra 04/11/19 MICROSCOPIC DESCRIPTION Slides are reviewed. GROSS DESCRIPTION Received in fixative is one container labeled with the patient's name and designated left fallopian tube. The specimen consists of a tube with an average length of 6 cm and has an average diameter of 0.8 cm. No mass lesions are identified. Deck Engineer sections are submitted in one cassette. / AM:omayra 04/10/19 TC:4 CPT: 52739
[2019-04-10 06:41] LABS: Internal QC Validated? YES +Cl - CLEAR BKGD; Pregnancy, Urine Negative Negative
[2019-04-10 06:48] VITALS: BP 126/88; PULSE 87; RESP 16; TEMP 36.6; O2SAT 98; BMI 28.7
[2019-04-10 06:59] LABS: Hematocrit 38.7 % (37-47); Hemoglobin 13.3 g/dl (12.0-15.0); Mean Corp Hgb Conc 34.4 g/gl (32-36); Mean Corpuscular Hgb 30.4 pg (27.0-32.0); Mean Corpuscular Volume 88.6 fL (81-99); Mean Platelet Vol. 8.5 fl (6.2-12.0); Platelet Count 356 K/mm3 (150-450); RBC Distribution Width CV 11.6 % (11.6-14.6); RBC Distribution Width SD 37.1 fl (35.1-43.9); Red Blood Count 4.37 M/mm3 (4.2-5.4); White Blood Count 6.3 K/mm3 (4.4-11.0)
[2019-04-10 07:04] LABS: Scan Indicated on CBC? Y/N NO
--- NOTE | 2019-04-10 07:34 | DCINST_ITS ---
You will use the following diet at home:: No restrictions, Regular Your food should be the consistency of: Regular Discharge Activity: Return to Normal Activity, May not drive while taking narcotic pain medications., May Shower May resume sexual activity in: 10-14 days Weight Bearing Status: Weight bearing as tolerated, Full weight bearing Lifting Restrictions: No ligting > 20 pounds Call your doctor if your incision/area has: Sudden Increased Bleeding, Increased Pain/ Swelling, Increased Redness, Foul Smelling Discharge, Swelling at the incision site Call your doctor if you observe: Fever of 101 or Higher, Inability to urinate, Inability to have a bowel movement, Using more than one pad per hour, Shortness of breath, Dizziness, Chest pain, Increased palpitations (irregular heartbeat), Calf discomfort, Uncontrolled pain Suture Line Care: Avoid Pulling/Pushing Cleanse incision/area with: Soap & Water Allergies/Adverse Reactions: Allergies No Known Allergies Allergy (Verified 11/15/18 11:28) Medications to take at Discharge Vits [Prenatabs FA ] 1 tablet PO DAILY 02/10/16 Primary Care Physician: Care Physician,No Primary [Primary Care Provider] - Test Results: Test results from this visit will be discussed in further detail at your follow- up appointment, if applicable. Please Follow Up With: Yolanda Peters DO When: 1-2 weeks Proposed Discharge Date: 04/10/19
--- NOTE | 2019-04-10 07:34 | PCM.OPRPT ---
Problem List (1) Sterilization Status: Acute Report of Operation Date of Procedure: 04/10/19 Pre-Operative Diagnosis: Desires permanent sterilization Post-Operative Diagnosis: As above Surgery/Procedure Performed:: Laparoscopic left salpingectomy Description of Surgical Findings:: Normal appendix. Liver with adhesions noted, consistent with Brice Anderson Tae syndrome. Minimal adhesions of bladder to anterior uterus. Normal appearing uterus. Normal pelvic CDS and bilateral ovarian fossas. Normal bilateral ovaries. Right fallopian tube absent. Left fallopian tube present Type of Anesthesia:: General Specimen's removed: Left fallopian tube Drains: None Estimated Blood Loss (mL): 5 cc Description of Procedure: General anesthesia was adequate. Patient prepped and draped in usual sterile fashion in dorsal lithotomy position using yellow fin stirrups. Straight catheterization was performed prior to the start of the procedure. A weighted speculum was placed to expose the cervix. A single tooth tenaculum was placed on the anterior lip of the cervix and a uterine manipulator was placed. Gloves were changed and attention was turned to the abdominal portion of the case. Marcaine was injected infraumbilically and an incision was made to accommodate a 5 mm port. The camera and 5 mm port were placed under direct visualization. Once confirmed intraperitoneal, the abdomen was insufflated. One right and one left lateral 5 mm ports were placed after injection with Marcaine. Findings were noted as above. The left fallopian tube was followed out to the fimbriated end, and removed using the Ligasure device. The left fallopian tube was sent to pathology for review. Pictures were taken. Hemostasis was noted. The ports were removed. The incisions were closed with Monocryl in subcuticular fashion and Dermabond was placed over the incisions. All instruments were removed from the vagina. Instrument counts were correct. The patient was taken to the recovery room in stable condition. Grafts/Implants Used: None - Complications None - Admit VTE Documentation VTE Present on Admission: No VTE Mechan Device Prophylaxis: SCD's VTE Pharm Prophylaxis ordered?: No
[2019-04-10] MEDS: Bupivacaine Mpf 0.5% 30 ML VIAL (08:27)
[2019-04-10 08:38] VITALS: BP 126/88; BP 128/95; PULSE 83; RESP 16; TEMP 36.6; O2SAT 100
[2019-04-10 08:45] VITALS: BP 119/83; BP 126/88; PULSE 67; RESP 16; O2SAT 100
[2019-04-10 09:00] VITALS: BP 116/80; BP 126/88; PULSE 59; RESP 16; O2SAT 100
[2019-04-10 09:15] VITALS: BP 126/88; BP 128/83; PULSE 60; RESP 16; TEMP 36.5; O2SAT 100
[2019-04-10 10:05] VITALS: BP 126/88; BP 129/72; PULSE 66; RESP 16; TEMP 36.9; O2SAT 100
== END 2019-04-10 10:15 | disposition home or self-care (01) ==
LOC: SDC 06:12 → AC 06:13
PROVIDERS: Referring Provider Obstetrics & Gynecology; Visit Provider Obstetrics & Gynecology
PROC: (CPT 58661; principal; 2019-04-10 07:15)
DX: Z30.2 Encounter for sterilization (principal); Z87.891 Personal history of nicotine dependence
CPT/HCPCS: 58661; 81025; 85027; 86850; 86870; 86900; 86902; 86920; 86921; 86922; 88302; J7120; J2405